=== PATIENT | female | born 1945 | race Caucasian/White ===

== ENCOUNTER 2022-01-23 08:57 | Outpatient (CLI) | payer MEDICARE, OTHER, SELFPAY ==
[2022-01-23 17:42] LABS: Vitamin D 25 Hydroxy* 25 ng/mL (30-80)
[2022-01-23 20:31] LABS: Free T4 Free Thyroxine* 0.85 ng/dL (0.70-1.85)
== END 2022-01-23 08:58 | disposition home or self-care (01) ==
PROVIDERS: PCP Family Medicine; Visit Provider Family Medicine
DX: E03.8 Other specified hypothyroidism (principal); R79.89 Other specified abnormal findings of blood chemistry; E55.9 Vitamin D deficiency, unspecified; M85.80 Other specified disorders of bone density and structure, unspecified site
CPT/HCPCS: 82306; 84439; 84443

== ENCOUNTER 2022-04-24 14:42 | Outpatient (CLI) | payer MEDICARE, OTHER, SELFPAY ==
[2022-04-24 17:09] LABS: Vitamin D 25 Hydroxy* 28 ng/mL (30-80)
[2022-04-24 20:08] LABS: Free T4 Free Thyroxine* 0.85 ng/dL (0.70-1.85)
== END 2022-04-24 14:43 | disposition home or self-care (01) ==
PROVIDERS: PCP Family Medicine; Visit Provider Family Medicine
DX: E55.9 Vitamin D deficiency, unspecified (principal); E03.9 Hypothyroidism, unspecified
CPT/HCPCS: 82306; 84439; 84443

== ENCOUNTER 2022-10-30 13:28 | Outpatient (CLI) | payer MEDICARE, OTHER, MEDICAID, SELFPAY | END 2022-10-30 13:29 | disposition home or self-care (01) | LOC: NFLDREF 10-31 09:40 | PROVIDERS: PCP Family Medicine; Referring Provider Family Medicine; Visit Provider Family Medicine | DX: E03.9 Hypothyroidism, unspecified (principal); E55.9 Vitamin D deficiency, unspecified; R53.83 Other fatigue; Z13.6 Encounter for screening for cardiovascular disorders | CPT/HCPCS: 80053; 80061; 82306; 84443 ==

== ENCOUNTER 2023-01-11 14:42 | Inpatient (IN) | payer BC, SELFPAY ==
[2023-01-11] VITALS (14 sets, daily range): BP systolic 104–136; BP diastolic 60–85; PULSE 73–101; RESP 16–20; TEMP 36.6–36.9; O2SAT 92–97; BMI 24.4
--- NOTE | 2023-01-11 15:54 | CRLHL7_ITS ---
For Patients: As a result of the Cures Act, medical imaging exams and procedure reports are released immediately into your electronic medical record. You may view this report before your referring provider. If you have questions, please contact your health care provider. INDICATION: Trauma. TECHNIQUE: CT cervical spine without contrast. COMPARISON: None. FINDINGS: Vertebrae: Alignment is normal. There are no fractures or suspicious bony lesions. Discs and facet joints: There are diffuse degenerative changes in the disc spaces and facet joints. Extraspinal findings: Paraspinous soft tissues are unremarkable. IMPRESSION: 1. No sign of acute injury. 2. Multilevel degenerative spondylosis. Please note that all CT scans at this facility use dose modulation, iterative reconstruction, and/or weight-based dosing when appropriate to reduce radiation dose to as low as reasonably achievable. Dictated by Kevin Valencia MD @ 01/11/2023 5:01:46 PM (Electronically Signed)
--- NOTE | 2023-01-11 15:54 | CRLHL7_ITS ---
For Patients: As a result of the Cures Act, medical imaging exams and procedure reports are released immediately into your electronic medical record. You may view this report before your referring provider. If you have questions, please contact your health care provider. Indication: Trauma. Technique: Left humerus, 2 views. Comparison: None. Findings/Impression: Bones: Acute mildly displaced horizontal humeral diaphyseal fracture. Joint spaces: Unremarkable. Soft tissues: Unremarkable. Dictated by Kevin Valencia MD @ 01/11/2023 5:14:01 PM (Electronically Signed)
--- NOTE | 2023-01-11 15:55 | CRLHL7_ITS ---
For Patients: As a result of the Century Cures Act, medical imaging exams and procedure reports are released immediately into your electronic medical record. You may view this report before your referring provider. If you have questions, please contact your health care provider. INDICATION: Fall, altered mental status. TECHNIQUE: CT head without contrast. COMPARISON: July 12, 2019. FINDINGS: CSF spaces: Mild diffuse parenchymal volume loss. Brain parenchyma and extra-axial spaces: Mild chronic white matter ischemic disease. The lorenzo-white differentiation is normal. No sign of mass, hemorrhage, or midline shift. No extra-axial fluid collection. Skull base and calvarium: The visualized paranasal sinuses and mastoid air cells demonstrate no acute or significant findings. The visualized orbits are grossly unremarkable. No skull fractures. IMPRESSION: No acute intracranial abnormality on this noncontrast study. Please note that all CT scans at this facility use dose modulation, iterative reconstruction, and/or weight-based dosing when appropriate to reduce radiation dose to as low as reasonably achievable. Dictated by Kevin Valencia MD @ 01/11/2023 4:59:59 PM (Electronically Signed)
--- NOTE | 2023-01-11 15:55 | CRLHL7_ITS ---
For Patients: As a result of the Century Cures Act, medical imaging exams and procedure reports are released immediately into your electronic medical record. You may view this report before your referring provider. If you have questions, please contact your health care provider. INDICATION: Chest pain. TECHNIQUE: Chest 1 views. COMPARISON: None. FINDINGS: Cardiovascular and mediastinum: Heart size and vasculature are normal in caliber and appearance. Lungs and pleural spaces: Lungs are clear. No sign of infiltrate or mass. No sign of pleural effusion. No pneumothorax. Bones and soft tissues: No significant findings. IMPRESSION: No acute or significant findings. Dictated by Kevin Valencia MD @ 01/11/2023 5:13:00 PM (Electronically Signed)
[2023-01-11 16:28] LABS: Basophils Absolute Auto 0.01 K/uL (0.00-0.30); Basophils Percent Auto 0.2 % (0.0-3.0); Hematocrit 40.6 % (33.0-51.0); Hemoglobin* 13.4 gm/dL (12.0-16.0); Immature Granulocytes Abs Auto 0.01 K/uL (0.00-0.30); Immature Granulocytes Pct Auto 0.2 %; Lymphocytes Percent Auto 8.7 % (20-44); Mean Corpuscular HGB Conc 33 gm/dL (32-36); Mean Corpuscular Hemoglobin 29 pg (26-34); Mean Corpuscular Volume 87 fL (80-100); Monocytes Percent Auto 9.3 % (0.0-11.0); Neutrophils Percent Auto 81.6 % (42.0-72.0); Platelet Count* 160 K/uL (140-440); RDW Coefficient of Variation % 13.1 % (11.5-15.5); Red Blood Count 4.66 m/uL (4.00-5.20); White Blood Count* 5.28 K/uL (4.50-11.00)
[2023-01-11 16:31] LABS: Slide Review Reflex No
[2023-01-11 16:46] LABS: Albumin* 4.2 g/dL (3.3-5.0)
[2023-01-11 16:47] LABS: Chloride* 102 mmol/L (96-114); Potassium* 3.8 mmol/L (3.6-5.1); Sodium* 137 mmol/L (135-149)
[2023-01-11 16:49] LABS: Bilirubin Total* 0.5 mg/dL (0.1-1.5); Creatinine* 0.9 mg/dL (0.5-1.5); Estimated Glomerular Filt Rate 65 ml/min
[2023-01-11 16:50] LABS: Alanine Aminotransferase* 29 U/L (4-35); Alkaline Phosphatase* 81 U/L (40-150); Anion Gap 11 mEq/L (7-15); Aspartate Amino Transferase* 49 U/L (12-35); Blood Urea Nitrogen* 20 mg/dL (7-30); Calcium* 9.2 mg/dL (8.4-10.6); Carbon Dioxide* 24 mmol/L (20-32); Glucose* 112 mg/dL (60-115); Magnesium* 2.2 mg/dL (1.5-2.6); Total Protein* 7.5 g/dL (6.0-8.3)
[2023-01-11 17:04] LABS: Troponin I* < 0.01 ng/mL (0.01-0.04)
[2023-01-11 17:10] LABS: Creatine Kinase* 115 U/L (41-117)
[2023-01-11 17:15] LABS: PCR FLU A Negative PCR FLU A (Negative); PCR FLU B Negative PCR FLU B (Negative); PCR RSV Negative PCR RSV (Negative)
[2023-01-11] MEDS: MORPHINE 4 MG/ML INJ IVP (17:15)
[2023-01-11 17:32] LABS: SARS PCR* POSITIVE SARS-CoV-2 (Negative)
--- NOTE | 2023-01-11 17:45 | ED_ITS ---
HPI - General Adult General Date Seen: 01/11/23 Chief complaint: Syncope/Fainted Stated complaint: Fell, lost consciousness, L arm injury Time Seen by Provider: 01/11/23 15:01 Source: patient Limitations: no limitations History of Present Illness HPI narrative: Patient is a 77-year-old female with a history of dementia presents to emergency department for a fall and left arm pain. She does home alone. According to her daughter she spoke to the patient this morning and then today around 01:00 o'clock the patient's D-dimer came over to visit and found her on the ground. The patient was brought immediately to the emergency department. Patient is able to answer questions but her daughter does states she seems more confused than normal. Patient states she was in her kitchen when next thing she knew she was on the ground. She is having difficulty getting back up in his having severe left arm pain. She also an episode of incontinence which her daughter states is abnormal for her. The patient denies chest pain, shortness of breath, headache, vision changes, abdominal pain, diarrhea, dysuria, for fevers, chills. Related Data Previous Rx's Medication Instructions Recorded cholecalciferol (vitamin D3) 50 50 mcg PO QDAY #90 tabs 11/02/22 mcg (2,000 unit) tablet donepezil 10 mg tablet 10 mg PO .Bedtime #90 tabs 11/02/22 fluoxetine 20 mg capsule 20 mg PO QDAY #90 caps 11/02/22 fluticasone propionate 50 2 spray intranasal QDAY #10 mL 11/02/22 mcg/actuation nasal spray,suspension (Flonase Allergy Relief) levothyroxine 75 mcg tablet 75 mcg PO DAILY #90 tabs 11/02/22 mirtazapine 15 mg tablet 15 mg PO .Bedtime #90 tabs 11/02/22 Allergies Allergy/AdvReac Type Severity Reaction Status Date / Time Penicillins Allergy Unknown Rash Verified 11/02/22 12:50 Sulfa (Sulfonamide Allergy Unknown Rash Verified 11/02/22 12:50 Antibiotics) Review of Systems Status of ROS: Reports: 10 or more systems reviewed and unremarkable except as noted in History and below [facility] Medical History (Updated 01/11/23 @ 20:07 by Vibha Hernandez MD) Chronic rhinitis ?J31.0 - Chronic rhinitis (ICD-10) Insomnia ?G47.00 - Insomnia, unspecified (ICD-10) Neuropathy ?G62.9 - Polyneuropathy, unspecified (ICD-10) Dyslipidemia (~2018) ?E78.5 - Hyperlipidemia, unspecified (ICD-10) Vitamin D deficiency ?E55.9 - Vitamin D deficiency, unspecified (ICD-10) Posttraumatic stress disorder ?F43.10 - Post-traumatic stress disorder, unspecified (ICD-10) Osteopenia (~2018) ?M85.80 - Other specified disorders of bone density and structure, unspecified site (ICD-10) Mild cognitive impairment ?G31.84 - Mild cognitive impairment, so stated (ICD-10) Hypothyroidism ?E03.9 - Hypothyroidism, unspecified (ICD-10) Fibromyalgia ?M79.7 - Fibromyalgia (ICD-10) Depression ?F32.A - Depression, unspecified (ICD-10) Anxiety ?F41.9 - Anxiety disorder, unspecified (ICD-10) Syncope and collapse ?R55 - Syncope and collapse (ICD-10) Surgical History Status post tubal ligation (1968) ?Z98.51 - Tubal ligation status (ICD-10) History of varicose vein stripping (1968) ?Z98.890 - Other specified postprocedural states (ICD-10) History of colonoscopy (11/01/18) ?Z98.890 - Other specified postprocedural states (ICD-10) Family History Father Alcohol dependence Maternal Grandmother Breast cancer Mother Fibromyalgia Social History (Updated 01/11/23 @ 20:07 by Vibha Hernandez MD) Narrative: Lives independently in [address] [facility] [address]. She currently receives [employer], no other services. 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 Full Code Exercises: walking, swimming -swims 60 minutes daily, walks 30 minutes daily non smoker rarely consumes alcohol What is your current living situation?: I presently have a place to live Problems where you live: no known problems Problems where you live details: N/A In the past 12 months, utilities in danger of being shut off: no In the past 12 mos, have been you worried that your food would run out before you had money to buy more?: never true In the past 12 mos, the food you bought just didn't last and you didn't have money to buy more?: never true Highest level of school completed/degree received: Bachelor's degree Smoking Status: Never smoker Do you use any of these nicotine containing products: None How often do you have a drink containing alcohol: never How often do you have six or more drinks on one occasion: Never AUDIT-C Alcohol total score: 0 Non-prescribed substance use: denies use Caffeine: Yes How often does anyone, including family, friends and others, physically hurt you : never How often does anyone, including family, friends and others, insult or talk down to you: never How often does anyone, including family, friends and others, threaten you with harm: never How often does anyone, including family, friends and others, scream or curse at you: never Little interest or pleasure in doing things: not at all Feeling down, depressed, or hopeless: not at all service: No Exam Narrative: Exam Narrative: Const: Well-nourished, Well-developed, in mild distress Eyes: PERRL, no conjunctival injection, and symmetrical lids ENMT: Atraumatic external nose and ears. Moist mucous membranes. Neck: Symmetric, trachea midline, No thyromegaly. CVS: RRR, No murmurs or gallops. Peripheral pulses 2+ and equal in all extremities RESP: Unlabored respiratory effort. Clear to auscultation bilaterally. GI: Nontender/Nondistended, No rebound or guarding. MSK: Deformity noted to left upper arm that is painful to the touch. No other injuries noted Skin: Warm, Dry. No rashes or lesions. Neuro: Normal Muscle tone, No focal neurological deficits. Psych: Awake, Alert, & Oriented x3. Appropriate mood and affect. Const: Vital Signs, click to edit/add: Vital Signs - 24 hr 01/11/23 14:55 01/11/23 15:38 01/11/23 16:22 Temperature 97.8 F Pulse Rate 92 Pulse Rate [Right Pulse Oximeter] 73 Respiratory Rate 18 Blood Pressure Blood Pressure [Ri ght Arm] Blood Pressure [Ri ght Upper Arm] 107/66 Blood Pressure [or thostatic lying Ri ght Arm] 122/78 Blood Pressure [or thostatic sitting Right Arm] 113/84 Blood Pressure [or thostatic standing Right Arm] 104/60 Pulse Oximetry 94 92 Oxygen Delivery Me thod Room Air 01/11/23 16:45 01/11/23 16:53 01/11/23 17:00 Temperature Pulse Rate 86 94 91 Pulse Rate [Right Pulse Oximeter] Respiratory Rate Blood Pressure 124/68 Blood Pressure [Ri ght Arm] Blood Pressure [Ri ght Upper Arm] Blood Pressure [or thostatic lying Ri ght Arm] Blood Pressure [or thostatic sitting Right Arm] Blood Pressure [or thostatic standing Right Arm] Pulse Oximetry 95 96 94 Oxygen Delivery Me thod 01/11/23 17:02 01/11/23 17:24 01/11/23 17:30 Temperature Pulse Rate 90 91 93 Pulse Rate [Right Pulse Oximeter] Respiratory Rate Blood Pressure 117/72 Blood Pressure [Ri ght Arm] Blood Pressure [Ri ght Upper Arm] Blood Pressure [or thostatic lying Ri ght Arm] Blood Pressure [or thostatic sitting Right Arm] Blood Pressure [or thostatic standing Right Arm] Pulse Oximetry 95 96 96 Oxygen Delivery Me thod 01/11/23 17:32 01/11/23 17:50 01/11/23 19:53 Temperature 98.5 F Pulse Rate 101 H Pulse Rate [Right Pulse Oximeter] 82 Respiratory Rate 20 16 Blood Pressure 111/70 Blood Pressure [Ri ght Arm] 136/85 Blood Pressure [Ri ght Upper Arm] Blood Pressure [or thostatic lying Ri ght Arm] Blood Pressure [or thostatic sitting Right Arm] Blood Pressure [or thostatic standing Right Arm] Pulse Oximetry 94 97 Oxygen Delivery Me thod Room Air Course Vital Signs Vital signs: Initial Vital Signs Temperature 97.8 F 01/11/23 14:55 Temperature Source Temporal Artery Scan 01/11/23 14:55 Pulse Rate 73 01/11/23 14:55 Respiratory Rate 18 01/11/23 14:55 Blood Pressure 107/66 01/11/23 14:55 Blood Pressure Mean 79 01/11/23 14:55 Blood Pressure Position Sitting 01/11/23 14:55 Pulse Oximetry 94 01/11/23 14:55 Oxygen Delivery Method Room Air 01/11/23 14:55 Vital Signs Temperature 97.8 F 01/11/23 14:55 Pulse Rate 73 01/11/23 14:55 Respiratory Rate 18 01/11/23 14:55 Blood Pressure 107/66 01/11/23 14:55 Pulse Oximetry 94 01/11/23 14:55 Oxygen Delivery Method Room Air 01/11/23 14:55 Temperature 98.5 F 01/11/23 20:35 Pulse Rate 82 01/11/23 19:53 Respiratory Rate 16 01/11/23 20:50 Blood Pressure 136/85 01/11/23 19:53 Pulse Oximetry 97 01/11/23 20:50 Oxygen Delivery Method Room Air 01/11/23 20:50 Medical Decision Making MDM Narrative Medical decision making narrative: Patient is a 77-year-old female presented emergency department for a fall and mild altered mental status compared to baseline. She is more confused than normal according to her daughter had episode of continence. Sounds like she had episode of syncope at home but unsure what the cause is. She does have an apparent left humerus fracture. We will order chest x-ray to look for signs of pneumonia. Urinalysis, CBC, EKG, troponin, CMP, his creatinine kinase were ordered. X-ray of left humerus was ordered also along with CTs of the head and cervical spine Patient's CBC, CMP, troponin, magnesium 0 showed no concerning abnormalities. X-rays of the chest shows no signs of pneumonia. Head and cervical spine CT showed no concerning findings. X-ray of left humerus shows a mildly displaced fracture of the midshaft humerus. This was splinted. Patient did test positive for COVID and is likely the cause of her symptoms. I spoke to the admitting hospitalist accepted her for admission. Lab Data Labs: Lab Results 01/11/23 01/11/23 Range/Units 16:15 16:55 WBC 5.28 (4.50-11.00) K/uL RBC 4.66 (4.00-5.20) m/uL Hgb 13.4 (12.0-16.0) gm/dL Hct 40.6 (33.0-51.0) % MCV 87 (80-100) fL MCH 29 (26-34) pg MCHC 33 (32-36) gm/dL RDW Coeff of Alvin 13.1 (11.5-15.5) % Plt Count 160 (140-440) K/uL Neut % (Auto) 81.6 H (42.0-72.0) % Lymph % (Auto) 8.7 L (20-44) % [place] % (Auto) 9.3 (0.0-11.0) % Eos % (Auto) 0.0 (0.0-7.0) % Baso % (Auto) 0.2 (0.0-3.0) % Neut # (Auto) 4.30 (1.7-7.0) K/uL Lymph # (Auto) 0.50 L (0.90-2.90) K/uL [place] # (Auto) 0.50 (0.00-0.90) K/UL Eos # (Auto) 0.00 (0.00-0.50) K/uL Baso # (Auto) 0.01 (0.00-0.30) K/uL Abs Immat Gran (auto) 0.01 (0.00-0.30) K/uL Imm/Tot Granulo (auto) 0.2 % Sodium 137 (135-149) mmol/L Potassium 3.8 (3.6-5.1) mmol/L Chloride 102 (96-114) mmol/L Carbon Dioxide 24 (20-32) mmol/L Anion Gap 11 (7-15) mEq/L BUN 20 (7-30) mg/dL Creatinine 0.9 (0.5-1.5) mg/dL Estimated GFR 65 ml/min Glucose 112 (60-115) mg/dL Calcium 9.2 (8.4-10.6) mg/dL Magnesium 2.2 (1.5-2.6) mg/dL Total Bilirubin 0.5 (0.1-1.5) mg/dL AST 49 H (12-35) U/L ALT 29 (4-35) U/L Alkaline Phosphatase 81 (40-150) U/L Total Creatine Kinase 115 (41-117) U/L Troponin I < 0.01 L (0.01-0.04) ng/mL Total Protein 7.5 (6.0-8.3) g/dL Albumin 4.2 (3.3-5.0) g/dL SARS-CoV-2 (PCR) POSITIVE SARS-CoV-2 A (Negative) Influenza Type A (PCR) Negative PCR FLU A (Negative) Influenza Type B (PCR) Negative PCR FLU B (Negative) RSV (PCR) Negative PCR RSV (Negative) Lab Acknowledgement Test Added Imaging Data Chest x-ray: Radiologist's impression: INDICATION: Chest pain. TECHNIQUE: Chest 1 views. COMPARISON: None. FINDINGS: Cardiovascular and mediastinum: Heart size and vasculature are normal in caliber and appearance. Lungs and pleural spaces: Lungs are clear. No sign of infiltrate or mass. No sign of pleural effusion. No pneumothorax. Bones and soft tissues: No significant findings. IMPRESSION: No acute or significant findings. Dictated by Kevin Valencia MD @ 01/11/2023 5:13:[address] cervical spine: Radiologist's impression: INDICATION: Trauma. TECHNIQUE: CT cervical spine without contrast. COMPARISON: None. FINDINGS: Vertebrae: Alignment is normal. There are no fractures or suspicious bony lesions. Discs and facet joints: There are diffuse degenerative changes in the disc spaces and facet joints. Extraspinal findings: Paraspinous soft tissues are unremarkable. IMPRESSION: 1. No sign of acute injury. 2. Multilevel degenerative spondylosis. Please note that all CT scans at this facility use dose modulation, iterative reconstruction, and/or weight-based dosing when appropriate to reduce radiation dose to as low as reasonably achievable. Dictated by Kevin Valencia MD @ 01/11/2023 5:01:[address] scan - head: Radiologist's impression: INDICATION: Fall, altered mental status. TECHNIQUE: CT head without contrast. COMPARISON: July 12, 2019. FINDINGS: CSF spaces: Mild diffuse parenchymal volume loss. Brain parenchyma and extra-axial spaces: Mild chronic white matter ischemic disease. The lorenzo-white differentiation is normal. No sign of mass, hemorrhage, or midline shift. No extra-axial fluid collection. Skull base and calvarium: The visualized paranasal sinuses and mastoid air cells demonstrate no acute or significant findings. The visualized orbits are grossly unremarkable. No skull fractures. IMPRESSION: No acute intracranial abnormality on this noncontrast study. Please note that all CT scans at this facility use dose modulation, iterative reconstruction, and/or weight-based dosing when appropriate to reduce radiation dose to as low as reasonably achievable. Dictated by Kevin Valencia MD @ 01/11/2023 4:59:59 PM Left humerus x-ray: Radiologist's impression: Indication: Trauma. Technique: Left humerus, 2 views. Comparison: None. Findings/Impression: Bones: Acute mildly displaced horizontal humeral diaphyseal fracture. Joint spaces: Unremarkable. Soft tissues: Unremarkable. Dictated by Kevin Valencia MD @ 01/11/2023 5:14:01 PM ECG Data Attestation: I personally reviewed and interpreted this ECG as follows: Prior ECG tracings: not available for review Interpretation: Normal sinus rhythm rate 96 beats per minute, normal intervals, normal axis, no ST or T-wave abnormalities Discharge Plan Discharge Clinical Impression: Acute alteration in mental status, COVID, Weakness Closed left humeral fracture Qualifiers: Encounter type: initial encounter Humerus Location: shaft Fracture morphology: other fracture Qualified Code(s): S42.392A - Other fracture of shaft of left humerus, initial encounter for closed fracture Patient Disposition: Admitted As Observation Discharge Location: [facility] Condition: Stable Procedures Orthopedic Splinting/Casting Left arm: Side: left Upper Extremity Injury Location: upper arm Upper extremity immobilizer: sling/shoulder immobilizer (Coaptation splint) Applied by clinician: / Conclusion: patient tolerated procedure
--- NOTE | 2023-01-11 18:22 | ED.NURSE ---
Pt report given off to gianluca CHAVEZ.
--- NOTE | 2023-01-11 19:54 | P.IMHP_ITS ---
Hospitalist- H&P: HPI History of Present Illness Date Seen: 01/11/23 Chief complaint: Fell, lost consciousness, L arm injury Narrative: Elizabeth Mcfarlane is a 77 year old female who presented to the emergency room today after being found down at home. She talked with her daughter early in the morning, and then was found on the floor by neighbors early afternoon; exact mechanism of fall unclear. Patient does not believe she had loss of consciousness, but neighbors noted she was more confused than baseline. Cherry does have baseline mild cognitive impairment and daughter Emely is present for H&P. ER course and findings: - negative head CT and C-spine, no acute findings on chest x-ray - left midshaft humerus fracture - + COVID without hypoxia - reassuring labs Review of Systems Status of ROS: Reports: 10 or more systems reviewed and unremarkable except as noted in History and below Narrative: -limited by cognitive impairment, but patient specifically denies any chest pain, cough, dyspnea, or other concerns for hospitalist team [facility] Medical History (Updated 01/11/23 @ 20:07 by Vibha Hernandez MD) Chronic rhinitis ?J31.0 - Chronic rhinitis (ICD-10) Insomnia ?G47.00 - Insomnia, unspecified (ICD-10) Neuropathy ?G62.9 - Polyneuropathy, unspecified (ICD-10) Dyslipidemia (~2018) ?E78.5 - Hyperlipidemia, unspecified (ICD-10) Vitamin D deficiency ?E55.9 - Vitamin D deficiency, unspecified (ICD-10) Posttraumatic stress disorder ?F43.10 - Post-traumatic stress disorder, unspecified (ICD-10) Osteopenia (~2018) ?M85.80 - Other specified disorders of bone density and structure, unspecified site (ICD-10) Mild cognitive impairment ?G31.84 - Mild cognitive impairment, so stated (ICD-10) Hypothyroidism ?E03.9 - Hypothyroidism, unspecified (ICD-10) Fibromyalgia ?M79.7 - Fibromyalgia (ICD-10) Depression ?F32.A - Depression, unspecified (ICD-10) Anxiety ?F41.9 - Anxiety disorder, unspecified (ICD-10) Syncope and collapse ?R55 - Syncope and collapse (ICD-10) Surgical History Status post tubal ligation (1968) ?Z98.51 - Tubal ligation status (ICD-10) History of varicose vein stripping (1968) ?Z98.890 - Other specified postprocedural states (ICD-10) History of colonoscopy (11/01/18) ?Z98.890 - Other specified postprocedural states (ICD-10) Family History Father Alcohol dependence Maternal Grandmother Breast cancer Mother Fibromyalgia Social History (Updated 01/11/23 @ 20:07 by Vibha Hernandez MD) Narrative: Lives independently in [address] [facility] [address]. She currently receives Meals on wheels, no other services. 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 Full Code Exercises: walking, swimming -swims 60 minutes daily, walks 30 minutes daily non smoker rarely consumes alcohol What is your current living situation?: I presently have a place to live Problems where you live: no known problems Problems where you live details: N/A In the past 12 months, utilities in danger of being shut off: no In the past 12 mos, have been you worried that your food would run out before you had money to buy more?: never true In the past 12 mos, the food you bought just didn't last and you didn't have money to buy more?: never true Highest level of school completed/degree received: Bachelor's degree Smoking Status: Never smoker Do you use any of these nicotine containing products: None How often do you have a drink containing alcohol: never How often do you have six or more drinks on one occasion: Never AUDIT-C Alcohol total score: 0 Non-prescribed substance use: denies use Caffeine: Yes How often does anyone, including family, friends and others, physically hurt you : never How often does anyone, including family, friends and others, insult or talk down to you: never How often does anyone, including family, friends and others, threaten you with harm: never How often does anyone, including family, friends and others, scream or curse at you: never Little interest or pleasure in doing things: not at all Feeling down, depressed, or hopeless: not at all service: No Meds Home Medications and Allergies Home Medication Comments: Patient takes donepezil and mirtazapine at night, in addition to melatonin. She also takes fluoxetine and levothyroxine during the day. Allergies Allergy/AdvReac Type Severity Reaction Status Date / Time Penicillins Allergy Unknown Rash Verified 11/02/22 12:50 Sulfa (Sulfonamide Allergy Unknown Rash Verified 11/02/22 12:50 Antibiotics) Exam Narrative: Exam Narrative: GEN: Alert and pleasant, nontoxic. Cognitive impairment is evident HEENT: EOMIs bilaterally, no scleral icterus CV: RRR, No concerning murmurs, rubs, or gallops R: LCTA bilaterally without concerning wheezing, air movement is adequate Ab: soft, nontender Ext: wwp, no concerning edema. 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 Skin: No concerning skin lesions or rashes on exposed skin Neuro: Nonfocal Psych: No agitation Const: Vital Signs, click to edit/add: Vital Signs - 24 hr 01/11/23 14:55 01/11/23 15:38 01/11/23 16:22 Temperature 97.8 F Pulse Rate 92 Pulse Rate [Right Pulse Oximeter] 73 Respiratory Rate 18 Blood Pressure Blood Pressure [Ri ght Upper Arm] 107/66 Blood Pressure [or thostatic lying Ri ght Arm] 122/78 Blood Pressure [or thostatic sitting Right Arm] 113/84 Blood Pressure [or thostatic standing Right Arm] 104/60 Pulse Oximetry 94 92 Oxygen Delivery Me od Room Air 01/11/23 16:45 01/11/23 16:53 01/11/23 17:00 Temperature Pulse Rate 86 94 91 Pulse Rate [Right Pulse Oximeter] Respiratory Rate Blood Pressure 124/68 Blood Pressure [Ri ght Upper Arm] Blood Pressure [or thostatic lying Ri ght Arm] Blood Pressure [or thostatic sitting Right Arm] Blood Pressure [or thostatic standing Right Arm] Pulse Oximetry 95 96 94 Oxygen Delivery Me thod 01/11/23 17:02 01/11/23 17:24 01/11/23 17:30 Temperature Pulse Rate 90 91 93 Pulse Rate [Right Pulse Oximeter] Respiratory Rate Blood Pressure 117/72 Blood Pressure [Ri ght Upper Arm] Blood Pressure [or thostatic lying Ri ght Arm] Blood Pressure [or thostatic sitting Right Arm] Blood Pressure [or thostatic standing Right Arm] Pulse Oximetry 95 96 96 Oxygen Delivery Sc thod 01/11/23 17:32 01/11/23 17:50 Temperature Pulse Rate 101 H Pulse Rate [Right Pulse Oximeter] Respiratory Rate 20 Blood Pressure 111/70 Blood Pressure [Ri ght Upper Arm] Blood Pressure [or thostatic lying Ri ght Arm] Blood Pressure [or thostatic sitting Right Arm] Blood Pressure [or thostatic standing Right Arm] Pulse Oximetry 94 Oxygen Delivery [facility] Hospitalist - H&P: Result Labs Labs: Short CBC 01/11/23 Range/Units 16:15 WBC 5.28 (4.50-11.00) K/uL Hgb 13.4 (12.0-16.0) gm/dL Hct 40.6 (33.0-51.0) % Plt Count 160 (140-440) K/uL BMP 01/11/23 16:15 Sodium 137 Potassium 3.8 Chloride 102 Carbon Dioxide 24 BUN 20 Creatinine 0.9 Glucose 112 Calcium 9.2 Cardiac Enzymes 01/11/23 Range/Units 16:15 Total Creatine Kinase 115 (41-117) U/L Troponin I < 0.01 L (0.01-0.04) ng/mL Liver Function 01/11/23 Range/Units 16:15 Total Bilirubin 0.5 (0.1-1.5) mg/dL AST 49 H (12-35) U/L ALT 29 (4-35) U/L Alkaline Phosphatase 81 (40-150) U/L Albumin 4.2 (3.3-5.0) g/dL Assessment and Plan Assessment and plan (1) Closed left humeral fracture: Problem comment: - likely non operative, therapies and orthopedic surgery consulted Status: Acute (2) COVID: Problem comment: -clinically stable at this time, no COVID specific therapies required Status: Acute (3) Weakness: Problem comment: - likely secondary to COVID, may require increased therapies at home Status: Acute (4) Acute alteration in mental status: Problem comment: - worsening of cognitive impairment vs COVID encephalopathy, work on redirection as needed Status: Acute (5) Dementia: Problem comment: - MMSE 10/2022 -correlates to moderate dementia - follows with PCP for this Status: Acute Plan - per above - Lovenox for prophylaxis, SCDs deferred given cognitive impairment, risk for confusion and fall - dispo: Home with increased services versus TCU, pending clinical course and therapy evaluations
[2023-01-11] MEDS: ACETAMINOPHEN 325 MG TABLET 975 MG PO (20:35)
[2023-01-11] MEDS: DONEPEZIL 10 MG TABLET PO (20:36)
[2023-01-11] MEDS: MELATONIN 3 MG TABLET 6 MG PO (20:36)
[2023-01-11] MEDS: MIRTAZAPINE 15 MG TABLET PO (20:36)
[2023-01-11] MEDS: SODIUM CHLORIDE 0.9 % (FLUSH) 10 ML SYRINGE 5 ML IVF (20:36)
[2023-01-11 20:55] LABS: Appearance Urine Clear (Clear); Bilirubin Urine Negative (Negative); Blood Urine Trace-intact (Negative); Glucose Urine Negative (Negative); Ketones Urine 2+ (Negative); Leukocyte Esterase Urine Negative (Negative); Nitrite Urine Negative (Negative); Protein Urine 2+ (Negative); Specific Gravity Urine >= 1.030 (1.000-1.030); Urobilinogen Urine 0.2 (0.2-1.0); pH Urine 5.5 (5.0-8.5)
[2023-01-11 20:59] LABS: Color Urine Yellow (Yellow)
[2023-01-11 21:08] LABS: RBC Urine 0-2 (0-2); Squamous Epithelial Cell Urine Few (None-Few); WBC Urine 0-2 (0-5)
[2023-01-11 21:09] LABS: Hyaline Casts Urine Few (None-Few)
[2023-01-12] VITALS (8 sets, daily range): BP systolic 121–153; BP diastolic 75–98; PULSE 83–95; RESP 16–18; TEMP 36.3–36.8; O2SAT 94–99
[2023-01-12 07:16] LABS: Albumin* 3.7 g/dL (3.3-5.0); Chloride* 103 mmol/L (96-114); Potassium* 3.5 mmol/L (3.6-5.1); Sodium* 135 mmol/L (135-149)
[2023-01-12 07:19] LABS: Alanine Aminotransferase* 27 U/L (4-35); Alkaline Phosphatase* 70 U/L (40-150); Anion Gap 6 mEq/L (7-15); Aspartate Amino Transferase* 50 U/L (12-35); Bilirubin Total* 0.4 mg/dL (0.1-1.5); Blood Urea Nitrogen* 17 mg/dL (7-30); Carbon Dioxide* 26 mmol/L (20-32); Creatinine* 0.5 mg/dL (0.5-1.5); Est. Creatinine Clearance* 39.39; Estimated Glomerular Filt Rate 95 ml/min; Glucose* 92 mg/dL (60-115); Total Protein* 6.7 g/dL (6.0-8.3)
--- NOTE | 2023-01-12 07:37 | PC.NURSE ---
Pt alert and oriented self only. Afebrile.?Pt denies, chest pain, SOB, and N/V. Pt kept left arm sling and brace on throughout night. Pt is tolerating reg diet and voiding. Pt is up SBA. Pt slept throughout most of night.?Night uneventful. ?
[2023-01-12] MEDS: LEVOTHYROXINE 75 MCG TABLET PO (08:14)
[2023-01-12] MEDS: FLUOXETINE HCL 20 MG CAPSULE PO (08:26)
--- NOTE | 2023-01-12 12:23 | P.ORCN_ITS ---
History of Present Illness HPI Date Seen: 01/12/23 Consult date: 01/12/23 Requesting physician: Ashish Chew Chief complaint: Fell, lost consciousness, L arm injury Narrative: Cherry is a 77-year-old [id number] female past medical history significant for dementia. She was admitted yesterday after she sustained a closed left humeral shaft fracture. Mechanism of injury is unknown, but patient apparently sustained a ground level fall in her home. She was found down and subsequent transferred to the emergency department where x-rays revealed a minimally displaced humeral shaft fracture. A sugar-tong splint was applied in the ER and and patient was admitted to the hospitalist service. This morning, she states that her pain is adequately controlled and is better since the splint was applied. She denies any other injuries. [facility] Medical History (Updated 01/11/23 @ 20:07 by Vibha Hernandez MD) Chronic rhinitis ?J31.0 - Chronic rhinitis (ICD-10) Insomnia ?G47.00 - Insomnia, unspecified (ICD-10) Neuropathy ?G62.9 - Polyneuropathy, unspecified (ICD-10) Dyslipidemia (~2018) ?E78.5 - Hyperlipidemia, unspecified (ICD-10) Vitamin D deficiency ?E55.9 - Vitamin D deficiency, unspecified (ICD-10) Posttraumatic stress disorder ?F43.10 - Post-traumatic stress disorder, unspecified (ICD-10) Osteopenia (~2018) ?M85.80 - Other specified disorders of bone density and structure, unspecified site (ICD-10) Mild cognitive impairment ?G31.84 - Mild cognitive impairment, so stated (ICD-10) Hypothyroidism ?E03.9 - Hypothyroidism, unspecified (ICD-10) Fibromyalgia ?M79.7 - Fibromyalgia (ICD-10) Depression ?F32.A - Depression, unspecified (ICD-10) Anxiety ?F41.9 - Anxiety disorder, unspecified (ICD-10) Syncope and collapse ?R55 - Syncope and collapse (ICD-10) Surgical History Status post tubal ligation (1968) ?Z98.51 - Tubal ligation status (ICD-10) History of varicose vein stripping (1968) ?Z98.890 - Other specified postprocedural states (ICD-10) History of colonoscopy (11/01/18) ?Z98.890 - Other specified postprocedural states (ICD-10) Family History Father Alcohol dependence Maternal Grandmother Breast cancer Mother Fibromyalgia Social History (Updated 01/11/23 @ 20:07 by Vibha Hernandez MD) Narrative: Lives independently in [address]. She currently receives Meals on wheels, no other services. 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 Full Code Exercises: walking, swimming -swims 60 minutes daily, walks 30 minutes daily non smoker rarely consumes alcohol What is your current living situation?: I presently have a place to live Problems where you live: no known problems Problems where you live details: N/A In the past 12 months, utilities in danger of being shut off: no In the past 12 mos, have been you worried that your food would run out before you had money to buy more?: never true In the past 12 mos, the food you bought just didn't last and you didn't have money to buy more?: never true Highest level of school completed/degree received: Bachelor's degree Smoking Status: Never smoker Do you use any of these nicotine containing products: None How often do you have a drink containing alcohol: never How often do you have six or more drinks on one occasion: Never AUDIT-C Alcohol total score: 0 Non-prescribed substance use: denies use Caffeine: Yes How often does anyone, including family, friends and others, physically hurt you : never How often does anyone, including family, friends and others, insult or talk down to you: never How often does anyone, including family, friends and others, threaten you with harm: never How often does anyone, including family, friends and others, scream or curse at you: never Little interest or pleasure in doing things: not at all Feeling down, depressed, or hopeless: not at all service: No Meds Home Medications and Allergies Home Medications Medication Instructions Recorded Confirmed Type donepezil 10 mg tablet 10 mg PO HS 01/12/23 01/12/23 History mirtazapine 15 mg tablet 15 mg PO HS 01/12/23 01/12/23 History Allergies Allergy/AdvReac Type Severity Reaction Status Date / Time Penicillins Allergy Unknown Rash Verified 11/02/22 12:50 Sulfa (Sulfonamide Allergy Unknown Rash Verified 11/02/22 12:50 Antibiotics) Ortho Exam Narrative Exam Narrative: Left upper extremity was examined in the splint. Radial, ulnar, and median sensation intact to light touch. Thumb extension, thumb opposition, thumb IP flexion, intrinsics, wrist flexion/extension are all intact. Fingers are warm well perfused with intact radial pulse. Const Vital Signs, click to edit/add: Vital Signs - 24 hr 01/11/23 14:55 01/11/23 15:38 01/11/23 16:22 Temperature 97.8 F Pulse Rate 92 Pulse Rate [Right Pulse Oximeter] 73 Respiratory Rate 18 Blood Pressure Blood Pressure [Right Arm] Blood Pressure [Right Upper Arm] 107/66 Blood Pressure [orthostatic lying Right Arm] 122/78 Blood Pressure [orthostatic sitting Right Arm] 113/84 Blood Pressure [orthostatic standing Right Arm] 104/60 Pulse Oximetry 94 92 Oxygen Delivery Method Room Air 01/11/23 16:45 01/11/23 16:53 01/11/23 17:00 Temperature Pulse Rate 86 94 91 Pulse Rate [Right Pulse Oximeter] Respiratory Rate Blood Pressure 124/68 Blood Pressure [Right Arm] Blood Pressure [Right Upper Arm] Blood Pressure [orthostatic lying Right Arm] Blood Pressure [orthostatic sitting Right Arm] Blood Pressure [orthostatic standing Right Arm] Pulse Oximetry 95 96 94 Oxygen Delivery Method 01/11/23 17:02 01/11/23 17:24 01/11/23 17:30 Temperature Pulse Rate 90 91 93 Pulse Rate [Right Pulse Oximeter] Respiratory Rate Blood Pressure 117/72 Blood Pressure [Right Arm] Blood Pressure [Right Upper Arm] Blood Pressure [orthostatic lying Right Arm] Blood Pressure [orthostatic sitting Right Arm] Blood Pressure [orthostatic standing Right Arm] Pulse Oximetry 95 96 96 Oxygen Delivery Method 01/11/23 17:32 01/11/23 17:50 01/11/23 19:53 Temperature 98.5 F Pulse Rate 101 H Pulse Rate [Right Pulse Oximeter] 82 Respiratory Rate 20 16 Blood Pressure 111/70 Blood Pressure [Right Arm] 136/85 Blood Pressure [Right Upper Arm] Blood Pressure [orthostatic lying Right Arm] Blood Pressure [orthostatic sitting Right Arm] Blood Pressure [orthostatic standing Right Arm] Pulse Oximetry 94 97 Oxygen Delivery Method Room Air 01/11/23 20:35 01/11/23 20:50 01/12/23 01:20 Temperature 98.5 F Pulse Rate Pulse Rate [Right Pulse Oximeter] 86 Respiratory Rate 16 16 Blood Pressure Blood Pressure [Right Arm] Blood Pressure [Right Upper Arm] Blood Pressure [orthostatic lying Right Arm] Blood Pressure [orthostatic sitting Right Arm] Blood Pressure [orthostatic standing Right Arm] Pulse Oximetry 97 Oxygen Delivery Method Room Air 01/12/23 01:20 01/12/23 01:20 01/12/23 03:25 Temperature 98.1 F 98.2 F Pulse Rate Pulse Rate [Right Pulse Oximeter] 86 91 Respiratory Rate 16 16 16 Blood Pressure Blood Pressure [Right Arm] 131/75 133/79 Blood Pressure [Right Upper Arm] Blood Pressure [orthostatic lying Right Arm] Blood Pressure [orthostatic sitting Right Arm] Blood Pressure [orthostatic standing Right Arm] Pulse Oximetry 95 95 97 Oxygen Delivery Method Room Air Room Air Room Air 01/12/23 07:00 01/12/23 07:00 01/12/23 07:00 Temperature 97.7 F Pulse Rate Pulse Rate [Right Pulse Oximeter] 95 95 Respiratory Rate 16 16 16 Blood Pressure Blood Pressure [Right Arm] 135/87 Blood Pressure [Right Upper Arm] Blood Pressure [orthostatic lying Right Arm] Blood Pressure [orthostatic sitting Right Arm] Blood Pressure [orthostatic standing Right Arm] Pulse Oximetry 94 94 Oxygen Delivery Method Room Air Room Air Results Labs Labs: Laboratory Results - last 48 hr 01/11/23 01/11/23 01/11/23 16:15 16:55 20:30 WBC 5.28 RBC 4.66 Hgb 13.4 Hct 40.6 MCV 87 MCH 29 MCHC 33 RDW Coeff of Alvin 13.1 Plt Count 160 Neut % (Auto) 81.6 H Lymph % (Auto) 8.7 L Lipscomb % (Auto) 9.3 Eos % (Auto) 0.0 Baso % (Auto) 0.2 Neut # (Auto) 4.30 Lymph # (Auto) 0.50 L Lipscomb # (Auto) 0.50 Eos # (Auto) 0.00 Baso # (Auto) 0.01 Abs Immat Gran (auto) 0.01 Imm/Tot Granulo (auto) 0.2 Sodium 137 Potassium 3.8 Chloride 102 Carbon Dioxide 24 Anion Gap 11 BUN 20 Creatinine 0.9 Estimated Creat Clear Estimated GFR 65 Glucose 112 Calcium 9.2 Magnesium 2.2 Total Bilirubin 0.5 AST 49 H ALT 29 Alkaline Phosphatase 81 Total Creatine Kinase 115 Troponin I < 0.01 L Total Protein 7.5 Albumin 4.2 Urine Color Yellow Urine Appearance Clear Urine pH 5.5 Ur Specific [place] >= 1.030 Urine Protein 2+ A Urine Glucose (UA) Negative Urine Ketones 2+ A Urine Blood Trace-intact A Urine Nitrite Negative Urine Bilirubin Negative Urine Urobilinogen 0.2 Ur Leukocyte Esterase Negative Urine RBC 0-2 Urine WBC 0-2 Ur Squamous Epith Cells Few Urine Bacteria None Hyaline Casts Few SARS-CoV-2 (PCR) POSITIVE SARS-CoV-2 A Influenza Type A (PCR) Negative PCR FLU A Influenza Type B (PCR) Negative PCR FLU B RSV (PCR) Negative PCR RSV Lab Acknowledgement Test Added 01/12/23 06:35 WBC RBC Hgb Hct MCV MCH MCHC RDW Coeff of Alvin Plt Count Neut % (Auto) Lymph % (Auto) [place]comb % (Auto) Eos % (Auto) Baso % (Auto) Neut # (Auto) Lymph # (Auto) [place]comb # (Auto) Eos # (Auto) Baso # (Auto) Abs Immat Gran (auto) Imm/Tot Granulo (auto) Sodium 135 Potassium 3.5 L Chloride 103 Carbon Dioxide 26 Anion Gap 6 L BUN 17 Creatinine 0.5 Estimated Creat Clear 39.39 Estimated GFR 95 Glucose 92 Calcium 9.0 Magnesium Total Bilirubin 0.4 AST 50 H ALT 27 Alkaline Phosphatase 70 Total Creatine Kinase Troponin I Total Protein 6.7 Albumin 3.7 Urine Color Urine Appearance Urine pH Ur Specific [place] Urine Protein Urine Glucose (UA) Urine Ketones Urine Blood Urine Nitrite Urine Bilirubin Urine Urobilinogen Ur Leukocyte Esterase Urine RBC Urine WBC Ur Squamous Epith Cells Urine Bacteria Hyaline Casts SARS-CoV-2 (PCR) Influenza Type A (PCR) Influenza Type B (PCR) RSV (PCR) Lab Acknowledgement Diagnostic results Additional Comments: X-rays of the left humerus performed 01/11/2023 were reviewed. These demonstrate a minimally displaced transverse left humeral shaft fracture with approximately 10? valgus angulation. Assessment and Plan Assessment and plan (1) Closed left humeral fracture: Problem comment: - likely non operative, therapies and orthopedic surgery consulted Status: Acute Total time spent: Total time spent is greater than 50% in coordination of care (as documented) at patient's floor/unit and/or counseling patient: (2) COVID: Problem comment: -clinically stable at this time, no COVID specific therapies required Status: Acute Total time spent: Total time spent is greater than 50% in coordination of care (as documented) at patient's floor/unit and/or counseling patient: (3) Weakness: Problem comment: - likely secondary to COVID, may require increased therapies at home Status: Acute Total time spent: Total time spent is greater than 50% in coordination of care (as documented) at patient's floor/unit and/or counseling patient: (4) Acute alteration in mental status: Problem comment: - worsening of cognitive impairment vs COVID encephalopathy, work on redirection as needed Status: Acute Total time spent: Total time spent is greater than 50% in coordination of care (as documented) at patient's floor/unit and/or counseling patient: (5) Dementia: Problem comment: - MMSE 15/30 10/2022 -correlates to moderate dementia - follows with PCP for this Status: Acute Total time spent: Total time spent is greater than 50% in coordination of care (as documented) at patient's floor/unit and/or counseling patient: Plan Closed, minimally displaced, transverse left humeral shaft fracture Recommend non operative treatment consisting of; -Temporary immobilization in the splint followed by transition to a Barnes brace as an outpatient. -Continue to use the sling when out of bed. -No lifting, pushing, or pulling with the left upper extremity. -Continue oral pain medications as needed for pain control. Follow up in Orthopedic Clinic in 1-2 weeks at which time she will likely be converted to a Barnes brace.
--- NOTE | 2023-01-12 13:14 | PM.IMPN1 ---
Progress Note: A&P Assessment and plan (1) Closed left humeral fracture: Problem details: - Ortho consult, recommended continued splint and sling. Outpatient Orthopedic clinic follow-up 1-2 weeks - continue pain management with scheduled Tylenol, lidocaine patch, cool compress/ice as needed - PT consult, no acute needs identified - OT consult, recommended ongoing acute therapy Status: Acute (2) COVID: Problem details: - clinically stable at this time, asymptomatic - start Paxlovid prophylactically Status: Acute (3) Weakness: Problem details: - likely secondary to COVID - PT/OT consulted, certified social workers in health care for discharge planning/placement needs Status: Acute (4) Acute alteration in mental status: Problem details: - worsening of cognitive impairment in setting of COVID infection - PT/OT/certified social workers in health care Status: Acute (5) Dementia: Problem details: - MMSE 10/2022 -correlates to moderate dementia. Followed by PCP - OT consulted, recommending ongoing therapies - certified social workers in health care consulted, will work with family for most appropriate discharge plan Status: Acute Time Spent With Patient Total time spent: Total time spent caring for the patient today was 45 minutes. This includes time spent for the visit reviewing the chart, time spent during the visit, time spent after the visit and documentation and planning in coordination of care. Subjective Date Seen: 01/12/23 Interval history: Patient reports pain adequately managed at rest. Appropriately comments that it hurts when she moves it. Denies headache. Denies chest pain or shortness for breath. Tolerating orals without nausea vomiting. Denies symptomatology related to COVID infection. Exam Narrative: Exam Narrative: PHYSICAL EXAM General: Pleasant, conversant, NAD HEENT: Normocephalic, atraumatic, sclera white, EOMI, oral mucosa moist Cardiovascular: RRR, S1S2. No pitting edema Pulmonary: CTA bilaterally without rhonchi, rales, expiratory wheezes. No dyspnea Neurological: Alert, answering questions appropriately however not oriented other than to self, cranial nerves intact, no focal findings Extremities: No gross joint deformity or swelling. Left upper extremity in splint and sling. Moving all fingers. No significant distal swelling. Skin: Warm, dry. No rash Const: Vital Signs, click to edit/add: Vital Signs - 24 hr 01/11/23 14:55 01/11/23 15:38 01/11/23 16:22 Temperature 97.8 F Pulse Rate 92 Pulse Rate [Right Pulse Oximeter] 73 Respiratory Rate 18 Blood Pressure Blood Pressure [Ri ght Arm] Blood Pressure [Ri ght Upper Arm] 107/66 Blood Pressure [or thostatic lying Ri ght Arm] 122/78 Blood Pressure [or thostatic sitting Right Arm] 113/84 Blood Pressure [or thostatic standing Right Arm] 104/60 Pulse Oximetry 94 92 Oxygen Delivery Me thod Room Air 01/11/23 16:45 01/11/23 16:53 01/11/23 17:00 Temperature Pulse Rate 86 94 91 Pulse Rate [Right Pulse Oximeter] Respiratory Rate Blood Pressure 124/68 Blood Pressure [Ri ght Arm] Blood Pressure [Ri ght Upper Arm] Blood Pressure [or thostatic lying Ri ght Arm] Blood Pressure [or thostatic sitting Right Arm] Blood Pressure [or thostatic standing Right Arm] Pulse Oximetry 95 96 94 Oxygen Delivery Me thod 01/11/23 17:02 01/11/23 17:24 01/11/23 17:30 Temperature Pulse Rate 90 91 93 Pulse Rate [Right Pulse Oximeter] Respiratory Rate Blood Pressure 117/72 Blood Pressure [Ri ght Arm] Blood Pressure [Ri ght Upper Arm] Blood Pressure [or thostatic lying Ri ght Arm] Blood Pressure [or thostatic sitting Right Arm] Blood Pressure [or thostatic standing Right Arm] Pulse Oximetry 95 96 96 Oxygen Delivery Me thod 01/11/23 17:32 01/11/23 17:50 01/11/23 19:53 Temperature 98.5 F Pulse Rate 101 H Pulse Rate [Right Pulse Oximeter] 82 Respiratory Rate 20 16 Blood Pressure 111/70 Blood Pressure [Ri ght Arm] 136/85 Blood Pressure [Ri ght Upper Arm] Blood Pressure [or thostatic lying Ri ght Arm] Blood Pressure [or thostatic sitting Right Arm] Blood Pressure [or thostatic standing Right Arm] Pulse Oximetry 94 97 Oxygen Delivery Me thod Room Air 01/11/23 20:35 01/11/23 20:50 01/12/23 01:20 Temperature 98.5 F Pulse Rate Pulse Rate [Right Pulse Oximeter] 86 Respiratory Rate 16 16 Blood Pressure Blood Pressure [Ri ght Arm] Blood Pressure [Ri ght Upper Arm] Blood Pressure [or thostatic lying Ri ght Arm] Blood Pressure [or thostatic sitting Right Arm] Blood Pressure [or thostatic standing Right Arm] Pulse Oximetry 97 Oxygen Delivery Me thod Room Air 01/12/23 01:20 01/12/23 01:20 01/12/23 03:25 Temperature 98.1 F 98.2 F Pulse Rate Pulse Rate [Right Pulse Oximeter] 86 91 Respiratory Rate 16 16 16 Blood Pressure Blood Pressure [Ri ght Arm] 131/75 133/79 Blood Pressure [Ri ght Upper Arm] Blood Pressure [or thostatic lying Ri ght Arm] Blood Pressure [or thostatic sitting Right Arm] Blood Pressure [or thostatic standing Right Arm] Pulse Oximetry 95 95 97 Oxygen Delivery Me thod Room Air Room Air Room Air 01/12/23 07:00 01/12/23 07:00 01/12/23 07:00 Temperature 97.7 F Pulse Rate Pulse Rate [Right Pulse Oximeter] 95 95 Respiratory Rate 16 16 16 Blood Pressure Blood Pressure [Ri ght Arm] 135/87 Blood Pressure [Ri ght Upper Arm] Blood Pressure [or thostatic lying Ri ght Arm] Blood Pressure [or thostatic sitting Right Arm] Blood Pressure [or thostatic standing Right Arm] Pulse Oximetry 94 94 Oxygen Delivery Me thod Room Air Room Air 01/12/23 11:00 Temperature 98.3 F Pulse Rate Pulse Rate [Right Pulse Oximeter] 86 Respiratory Rate 16 Blood Pressure Blood Pressure [Ri ght Arm] 121/78 Blood Pressure [Ri ght Upper Arm] Blood Pressure [or thostatic lying Ri ght Arm] Blood Pressure [or thostatic sitting Right Arm] Blood Pressure [or thostatic standing Right Arm] Pulse Oximetry 99 Oxygen Delivery Me thod Room Air Labs Labs: Laboratory Results - last 24 hr 01/11/23 01/11/23 01/11/23 16:15 16:55 20:30 WBC 5.28 RBC 4.66 Hgb 13.4 Hct 40.6 MCV 87 MCH 29 MCHC 33 RDW Coeff of Alvin 13.1 Plt Count 160 Neut % (Auto) 81.6 H Lymph % (Auto) 8.7 L [place] % (Auto) 9.3 Eos % (Auto) 0.0 Baso % (Auto) 0.2 Neut # (Auto) 4.30 Lymph # (Auto) 0.50 L [place] # (Auto) 0.50 Eos # (Auto) 0.00 Baso # (Auto) 0.01 Abs Immat Gran (auto) 0.01 Imm/Tot Granulo (auto) 0.2 Sodium 137 Potassium 3.8 Chloride 102 Carbon Dioxide 24 Anion Gap 11 BUN 20 Creatinine 0.9 Estimated Creat Clear Estimated GFR 65 Glucose 112 Calcium 9.2 Magnesium 2.2 Total Bilirubin 0.5 AST 49 H ALT 29 Alkaline Phosphatase 81 Total Creatine Kinase 115 Troponin I < 0.01 L Total Protein 7.5 Albumin 4.2 Urine Color Yellow Urine Appearance Clear Urine pH 5.5 Ur Specific [place] >= 1.030 Urine Protein 2+ A Urine Glucose (UA) Negative Urine Ketones 2+ A Urine Blood Trace-intact A Urine Nitrite Negative Urine Bilirubin Negative Urine Urobilinogen 0.2 Ur Leukocyte Esterase Negative Urine RBC 0-2 Urine WBC 0-2 Ur Squamous Epith Cells Few Urine Bacteria None Hyaline Casts Few SARS-CoV-2 (PCR) POSITIVE SARS-CoV-2 A Influenza Type A (PCR) Negative PCR FLU A Influenza Type B (PCR) Negative PCR FLU B RSV (PCR) Negative PCR RSV Lab Acknowledgement Test Added 01/12/23 06:35 WBC RBC Hgb Hct MCV MCH MCHC RDW Coeff of Alvin Plt Count Neut % (Auto) Lymph % (Auto) [place] % (Auto) Eos % (Auto) Baso % (Auto) Neut # (Auto) Lymph # (Auto) [place] # (Auto) Eos # (Auto) Baso # (Auto) Abs Immat Gran (auto) Imm/Tot Granulo (auto) Sodium 135 Potassium 3.5 L Chloride 103 Carbon Dioxide 26 Anion Gap 6 L BUN 17 Creatinine 0.5 Estimated Creat Clear 39.39 Estimated GFR 95 Glucose 92 Calcium 9.0 Magnesium Total Bilirubin 0.4 AST 50 H ALT 27 Alkaline Phosphatase 70 Total Creatine Kinase Troponin I Total Protein 6.7 Albumin 3.7 Urine Color Urine Appearance Urine pH Ur Specific [place] Urine Protein Urine Glucose (UA) Urine Ketones Urine Blood Urine Nitrite Urine Bilirubin Urine Urobilinogen Ur Leukocyte Esterase Urine RBC Urine WBC Ur Squamous Epith Cells Urine Bacteria Hyaline Casts SARS-CoV-2 (PCR) Influenza Type A (PCR) Influenza Type B (PCR) RSV (PCR) Lab Acknowledgement
[2023-01-12] MEDS: LIDOCAINE 5% PATCH 1 PATCH TRANSDERMA (14:00)
[2023-01-12] MEDS: ACETAMINOPHEN 325 MG TABLET 975 MG PO ×2 (14:01→19:10)
--- NOTE | 2023-01-12 17:41 | PC.NURSE ---
End of shift: Patient is alert and oriented to self and year of . Hx of dementia, seems to forget things but good at recall at times. OT recommends ongoing acute therapy as she also only has the use of her right hand. consumer services advisor to follow up with family, per OT. Patient VSS, RA, lungs are clear to auscultation. Assist of 1 to chair and BR. Patient is quick at getting up from the bed and chair at times so all alarms are in use. IV in right forearm SL, patent and covered with coban to deter patient from pulling it out. Patients left arm in sling and splint. C/O pain only when moving arm. Lidocaine patch applied to back shoulder of left arm. Patient on reg diet, tolerating well.
--- NOTE | 2023-01-12 17:45 | PC.SOCIAL ---
Discharge planning: Spoke with daughter, Emely, who states pt lives by herself and the only services she uses from the [facility] is home delivered meals. Pt has recently gone on Medical Assistance and has Tahira Goldstein as her [facility] case fitter. Emely states they ahve been discussing memory care assisted living but that nothing has been done with this. Emely states she plans to visit facilities. Shared with dtr that there are very limited facility availability for Medical Assistance payment and suggested she ask this when she is contacting assisted living facilities she is interested in touring. Dtr is aware that there is a process for admit to assisted living and that generally pt's go to intermediate from the hospital when a higher level of care is needed. Dtr would agree with a intermediate placement at discharge and is aware there may be limited availability due to pt's positive COVID test. Dtr shared that moving pt in with her or her providing additional care at the patient's home are not options for discharge and that she will need placement in a intermediate facility. feed elevator worker to follow up as needed.
[2023-01-12] MEDS: SODIUM CHLORIDE 0.9 % (FLUSH) 10 ML SYRINGE 5 ML IVF (19:10)
[2023-01-12] MEDS: MELATONIN 3 MG TABLET 6 MG PO (20:32)
[2023-01-12] MEDS: MIRTAZAPINE 15 MG TABLET PO (20:33)
[2023-01-12] MEDS: ENOXAPARIN 40 MG/0.4 ML INJ SUBCUT (20:33)
[2023-01-12] MEDS: DONEPEZIL 10 MG TABLET PO (20:33)
--- NOTE | 2023-01-12 22:30 | PC.NURSE ---
Shift [id number]- Patient denies pain, left arm remains in sling. She uses left hand to help use phone. JOSE in attendance to monitor and ready to asssist, as patient leaves bed quickly, independently. She is SBA. She is unable to state her birthday at medication pass this evening.
[2023-01-13] MEDS: ACETAMINOPHEN 325 MG TABLET 975 MG PO ×4 (01:54→20:32)
[2023-01-13 03:04] VITALS: BP 150/95; PULSE 83; RESP 18; TEMP 36.6; O2SAT 99
[2023-01-13 07:00] VITALS: BP 118/78; PULSE 109; PULSE 85; RESP 18; TEMP 36.4; O2SAT 99
[2023-01-13 07:00] LABS: Chloride* 105 mmol/L (96-114); Potassium* 3.6 mmol/L (3.6-5.1); Sodium* 139 mmol/L (135-149)
[2023-01-13 07:02] LABS: Creatinine* 0.4 mg/dL (0.5-1.5); Est. Creatinine Clearance* 39.39; Estimated Glomerular Filt Rate 101 ml/min
[2023-01-13 07:03] LABS: Anion Gap 9 mEq/L (7-15); Blood Urea Nitrogen* 13 mg/dL (7-30); Calcium* 9.1 mg/dL (8.4-10.6); Carbon Dioxide* 25 mmol/L (20-32); Glucose* 89 mg/dL (60-115)
[2023-01-13] MEDS: LEVOTHYROXINE 75 MCG TABLET PO (08:45)
[2023-01-13] MEDS: FLUOXETINE HCL 20 MG CAPSULE PO (08:45)
[2023-01-13] MEDS: SODIUM CHLORIDE 0.9 % (FLUSH) 10 ML SYRINGE 5 ML IVF ×2 (09:00→20:34)
[2023-01-13 11:00] VITALS: BP 120/79; PULSE 85; RESP 18; TEMP 36.6; O2SAT 96
--- NOTE | 2023-01-13 12:33 | PM.IMPN1 ---
Progress Note: A&P Assessment and plan (1) Closed left humeral fracture: Problem details: - Ortho consult, recommended continued splint and sling. Outpatient Orthopedic clinic follow-up 1-2 weeks - continue pain management with scheduled Tylenol, lidocaine patch, cool compress/ice as needed - PT consult, no acute needs identified - OT consult, recommended ongoing acute therapy Status: Acute (2) COVID: Problem details: - clinically stable at this time, asymptomatic - day 3 of 5 of Paclovid Status: Acute (3) Weakness: Problem details: - likely secondary to COVID - PT/OT consulted, executive secretary social welfare for discharge planning/placement needs Status: Acute (4) Acute alteration in mental status: Problem details: - worsening of cognitive impairment in setting of COVID infection - PT/OT/executive secretary social welfare Status: Acute (5) Dementia: Problem details: - MMSE 10/2022 -correlates to moderate dementia. Followed by PCP - OT consulted, recommending ongoing therapies - executive secretary social welfare consulted, will work with family for most appropriate discharge plan Status: Acute Subjective Date Seen: 01/13/23 Interval history: Daily Progress Note - Hospital Medicine Day #: 3 CC: Proximal left humerus fracture, COVID-19, dementia OVERNIGHT UPDATES FROM STAFF & MED, LAB, IMAGING UPDATES RN note Shift [id number]- Patient denies pain, left arm remains in sling. She uses left hand to help use phone. JOSE in attendance to monitor and ready to asssist, as patient leaves bed quickly, independently. She is SBA. She is unable to state her birthday at medication pass this evening. Vitals are all stable. She is afebrile. She is on room air satting 96%. Chemistries drawn this morning showed improved potassium, which is now normal. -head CT reviewed. No acute abnormality. -chest x-ray reviewed. No significant findings. -left humerus:Acute mildly displaced horizontal humeral diaphyseal fracture. -CT neck-no acute findings Objective: NAD, speaks in short sentences. Cannot name her current location (hospital). Vitals: see above Lungs: Clear. Cardiac: S1S2. Left arm: Is in a sling. Good radial pulses. Warm extremity. Able to follow commands for thumbs up, a okay, tapping her fingers. Disposition/Potential discharge - Likely to need short-term rehab and longer term dementia care Today I spent 50minutes seeing the patient, reviewing Expanse and EPIC notes/diagnostics, discussing the care plan with our care time that includes social work, PT/OT, pharmacy, RT, care home and documenting my impressions and plan in the medical record. ACP first 30 mins [id number] I went over options for care during this current hospitalization and explained the difference between short term rehab, alternative care/EW/MA for dementia. I described the likelihood of returning to previous functioning and what the options are going forward for care. Exam Const: Vital Signs, click to edit/add: Vital Signs - 24 hr 01/12/23 14:47 01/12/23 14:47 01/12/23 14:47 Temperature 97.6 F Pulse Rate [Right Pulse Oximeter] 85 85 Respiratory Rate 16 16 16 Blood Pressure [Ri ght Arm] 130/78 Pulse Oximetry 96 96 Oxygen Delivery Me thod Room Air Room Air 01/12/23 19:15 01/12/23 23:14 01/12/23 23:31 Temperature 97.4 F L 97.3 F L Pulse Rate [Right Pulse Oximeter] 91 83 Respiratory Rate 18 16 16 Blood Pressure [Ri ght Arm] 153/98 H 150/78 H Pulse Oximetry 96 96 96 Oxygen Delivery Me thod Room Air Room Air Room Air 01/13/23 03:04 01/13/23 07:00 01/13/23 07:00 Temperature 97.8 F 97.5 F L Pulse Rate [Right Pulse Oximeter] 83 109 H Respiratory Rate 18 18 18 Blood Pressure [Ri ght Arm] 150/95 H 118/78 Pulse Oximetry 99 99 99 Oxygen Delivery Me thod Room Air Room Air Room Air 01/13/23 07:00 01/13/23 11:00 Temperature 98 F Pulse Rate [Right Pulse Oximeter] 85 85 Respiratory Rate 18 18 Blood Pressure [Ri ght Arm] 120/79 Pulse Oximetry 96 Oxygen Delivery Me thod Room Air Labs Labs: Laboratory Results - last 24 hr 01/13/23 06:10 Sodium 139 Potassium 3.6 Chloride 105 Carbon Dioxide 25 Anion Gap 9 BUN 13 Creatinine 0.4 L Estimated Creat Clear 39.39 Estimated GFR 101 Glucose 89 Calcium 9.1
[2023-01-13 15:00] VITALS: BP 152/89; PULSE 83; RESP 18; TEMP 36.6; O2SAT 97
[2023-01-13] MEDS: LIDOCAINE 5% PATCH 1 PATCH TRANSDERMA (16:05)
[2023-01-13 19:00] VITALS: BP 167/104; PULSE 76; RESP 18; TEMP 36.3; O2SAT 95
--- NOTE | 2023-01-13 19:07 | PC.NURSE ---
Nursing Care Hours: [id number] Pt this shift confused and anxious in morning. Alert only to self. Was able to be reoriented by staff and family members. Calm and cooperative, VSS, LS clear, and no c/o pain. Scheduled Acetaminophen given along with ice pack. CMS intact, moderate director card strength. Pt not using call light and will set off bed alarm. Steady gait and staff posted outside of door. Eating and drinking sufficiently.
[2023-01-13] MEDS: ENOXAPARIN 40 MG/0.4 ML INJ SUBCUT (20:33)
[2023-01-13] MEDS: MIRTAZAPINE 15 MG TABLET PO (20:33)
[2023-01-13] MEDS: DONEPEZIL 10 MG TABLET PO (20:35)
--- NOTE | 2023-01-13 23:00 | PC.NURSE ---
Shift note: Pt continue to be confusion. JOSE 1:1 observation throughout the shift. Denied to to the left arm. No cough, SOB, and fever noted. Self transferred several times this shift. Takes pill whole with water. Vitally stable.
[2023-01-13 23:33] VITALS: RESP 18; O2SAT 95
[2023-01-14] VITALS (8 sets, daily range): BP systolic 131–151; BP diastolic 49–99; PULSE 72–88; RESP 16–81; TEMP 36.4–36.8; O2SAT 93–98
[2023-01-14] MEDS: ACETAMINOPHEN 325 MG TABLET 975 MG PO ×3 (02:13→16:12)
[2023-01-14] MEDS: LEVOTHYROXINE 75 MCG TABLET PO (05:51)
--- NOTE | 2023-01-14 06:54 | PC.NURSE ---
23-07: Pt rested well, no issues overnight, pain controlled.
[2023-01-14] MEDS: FLUOXETINE HCL 20 MG CAPSULE PO (10:28)
[2023-01-14] MEDS: SODIUM CHLORIDE 0.9 % (FLUSH) 10 ML SYRINGE 5 ML IVF ×2 (10:29→20:35)
--- NOTE | 2023-01-14 11:19 | PM.IMPN1 ---
Progress Note: A&P Assessment and plan (1) Closed left humeral fracture: Problem details: - Ortho consult, recommended continued splint and sling. Outpatient Orthopedic clinic follow-up 1-2 weeks - continue pain management with scheduled Tylenol, lidocaine patch, cool compress/ice as needed - PT consult, no acute needs identified - OT consult, recommended ongoing acute therapy Status: Acute (2) COVID: Problem details: - clinically stable at this time, asymptomatic - day 4 of 5 of Paclovid Status: Acute (3) Weakness: Problem details: - likely secondary to COVID - PT/OT consulted, socially responsible investment adviser for discharge planning/placement needs Status: Acute (4) Acute alteration in mental status: Problem details: - worsening of cognitive impairment in setting of COVID infection - 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 Status: Acute (5) Dementia: Problem details: - MMSE 10/2022 -correlates to moderate dementia. Followed by PCP - OT consulted, recommending ongoing therapies - socially responsible investment adviser consulted, will work with family for most appropriate discharge plan Status: Acute Subjective Date Seen: 01/14/23 Interval history: Daily Progress Note - Hospital Medicine Day #: 4 CC: Proximal left humerus fracture, COVID-19, dementia OVERNIGHT UPDATES FROM STAFF & MED, LAB, IMAGING UPDATES RN note: : Pt rested well, no issues overnight, pain controlled. Vitals are all stable. She is afebrile. She is on room air satting 96%. -head CT reviewed. No acute abnormality. -chest x-ray reviewed. No significant findings. -left humerus:Acute mildly displaced horizontal humeral diaphyseal fracture. -CT neck-no acute findings Objective: NAD, speaks in short sentences. Vitals: see above Lungs: Clear. Cardiac: S1S2. Left arm: Is in a sling. Good radial pulses. Warm extremity. Able to follow commands for thumbs up, a okay, tapping her fingers. Disposition/Potential discharge - Likely to need short-term rehab and longer term dementia care Today I spent 50minutes seeing the patient, reviewing Expanse and EPIC notes/diagnostics, discussing the care plan with our care time that includes social work, PT/OT, pharmacy, RT, [facility] and documenting my impressions and plan in the medical record. Exam Const: Vital Signs, click to edit/add: Vital Signs - 24 hr 01/13/23 15:00 01/13/23 15:00 01/13/23 15:00 Temperature 97.9 F Pulse Rate [Right Pulse Oximeter] 83 83 Respiratory Rate 18 18 18 Blood Pressure [Ri ght Arm] 152/89 H Pulse Oximetry 97 97 Oxygen Delivery Me thod Room Air Room Air 01/13/23 19:00 01/13/23 23:33 01/14/23 02:15 Temperature 97.4 F L 97.6 F Pulse Rate [Right Pulse Oximeter] 76 72 Respiratory Rate 18 18 18 Blood Pressure [Ri ght Arm] 167/104 H 137/76 Pulse Oximetry 95 95 95 Oxygen Delivery Me thod Room Air Room Air Room Air 01/14/23 02:16 01/14/23 06:08 01/14/23 07:00 Temperature 98 F 98.2 F Pulse Rate [Right Pulse Oximeter] 72 84 Respiratory Rate 18 81 H 18 Blood Pressure [Ri ght Arm] 135/85 144/99 H Pulse Oximetry 93 96 Oxygen Delivery Me thod Room Air Room Air
[2023-01-14] MEDS: LIDOCAINE 5% PATCH 1 PATCH TRANSDERMA (14:35)
--- NOTE | 2023-01-14 14:59 | PC.NURSE ---
Patient oriented to self only. Calm and directable this shift. Up to the bathroom frequently without any assistive devices - demonstrates a steady gait. Bed alarm remains on for safety. Pt was continent with loose stools. Appetite was poor. Denies pain in left arm. Splint to left arm and sling remains in place. CMS intact to left upper extremity. Ice offered and scheduled tylenol was given.
[2023-01-14] MEDS: DONEPEZIL 10 MG TABLET PO (20:33)
[2023-01-14] MEDS: MELATONIN 3 MG TABLET 6 MG PO (20:33)
[2023-01-14] MEDS: MIRTAZAPINE 15 MG TABLET PO (20:33)
[2023-01-14] MEDS: ENOXAPARIN 40 MG/0.4 ML INJ SUBCUT (20:36)
--- NOTE | 2023-01-14 21:36 | PC.NURSE ---
Pt alert to self. Pt SBA. Pt does attempt to self transfer. Pt had no complaints of pain. ?Pt takes medications whole.
[2023-01-15] VITALS (7 sets, daily range): BP systolic 122–139; BP diastolic 76–87; PULSE 85–88; RESP 16–20; TEMP 36.3–37.1; O2SAT 93–96
[2023-01-15] MEDS: LEVOTHYROXINE 75 MCG TABLET PO (06:22)
[2023-01-15] MEDS: FLUOXETINE HCL 20 MG CAPSULE PO (08:55)
--- NOTE | 2023-01-15 09:57 | PC.SOCIAL ---
Discharge planning: Received call from [facility] worker, Ruth [phone], who states she is pt;s [facility] worker as of 01/05/23. Ruth confirmed pt lives at [facility] and has a lifeline, delivered frozen meals and a med dispenser at home already. She states pt and family have refused placement in assisted living previously, but pt is on the waiver, so if assisted living placement was located that accept waiver payment, this could be an option. [employer]worker [employer] to continue to look for [facility] or assisted living placement for pt at discharge. Called [facility] admissoins and left message requesting call back regarding [facility] availability. farmworker [employer] to follow up as needed.
[2023-01-15] MEDS: ACETAMINOPHEN 325 MG TABLET 975 MG PO ×2 (11:03→16:40)
--- NOTE | 2023-01-15 12:35 | PM.IMPN1 ---
Progress Note: A&P Assessment and plan (1) Closed left humeral fracture: Problem details: - Ortho consult, recommended continued splint and sling. Outpatient Orthopedic clinic follow-up 1-2 weeks - continue pain management with scheduled Tylenol, lidocaine patch, cool compress/ice as needed - PT consult, no acute needs identified - OT consult, recommended ongoing acute therapy Status: Acute (2) COVID: Problem details: - clinically stable at this time, asymptomatic - empiric Paxlovid (01/12) Status: Acute (3) Weakness: Problem details: - likely secondary to COVID - PT/OT/SW following as patient will likely need TCU upon discharge Status: Acute (4) Acute alteration in mental status: Problem details: - worsening of cognitive impairment in setting of COVID infection - PT/OT/social services coordinator Status: Acute (5) Dementia: Problem details: - MMSE 10/2022 -correlates to moderate dementia. Followed by PCP - OT consulted, recommending ongoing therapies - social services coordinator consulted, will work with family for most appropriate discharge plan Status: Acute Plan - per above Subjective Date Seen: 01/15/23 Interval history: Cherry was admitted to the hospital on 01/11 for a left humeral fracture after a fall at home, incidentally diagnosed with COVID in emergency room. She has memory impairment and requires occasional redirection. No agitation. She has no concerns for the hospitalist team this morning. Exam Narrative: Exam Narrative: GEN: Alert and pleasant, just finished breakfast HEENT: EOMIs bilaterally, no scleral icterus CV: RRR, No concerning murmurs, rubs, or gallops R: LCTA bilaterally without concerning wheezing, rales, or rhonchi Ext: Left upper extremity is in a sling. He has normal peripheral pulses at the left wrist, normal capillary refill and normal brush head maker strength Skin: No concerning skin lesions or rashes on exposed skin Neuro: Nonfocal Psych: Appropriate for chronic conditions Const: Vital Signs, click to edit/add: Vital Signs - 24 hr 01/14/23 16:05 01/14/23 16:05 01/14/23 19:00 Temperature 97.7 F 97.6 F Pulse Rate [Right Pulse Oximeter] 81 88 Respiratory Rate 18 18 18 Blood Pressure [Ri ght Arm] 151/93 H 131/98 H Pulse Oximetry 96 98 97 Oxygen Delivery Me thod Room Air Room Air Room Air Oxygen Flow Rate 01/14/23 23:00 01/14/23 23:00 01/14/23 23:00 Temperature Pulse Rate [Right Pulse Oximeter] Respiratory Rate 18 16 16 Blood Pressure [Ri ght Arm] Pulse Oximetry Oxygen Delivery Me thod Oxygen Flow Rate 01/15/23 07:00 01/15/23 08:45 01/15/23 08:45 Temperature 98.3 F Pulse Rate [Right Pulse Oximeter] 87 87 Respiratory Rate 18 18 18 Blood Pressure [Ri ght Arm] 139/87 Pulse Oximetry 93 93 Oxygen Delivery Me thod Nasal Cannula Nasal Cannula Oxygen Flow Rate 1 1 01/15/23 11:00 Temperature 97.3 F L Pulse Rate [Right Pulse Oximeter] 88 Respiratory Rate 20 Blood Pressure [Ri ght Arm] 122/79 Pulse Oximetry 94 Oxygen Delivery Me thod Room Air Oxygen Flow Rate
[2023-01-15] MEDS: LIDOCAINE 5% PATCH 1 PATCH TRANSDERMA (13:35)
--- NOTE | 2023-01-15 15:38 | PC.SOCIAL ---
Addendum entered by Mellisa Persaud SHIPPING AND RECEIVING WEIGHER 01/15/23 15:49: Discharge planning: Called dtrMissy, and provided her with information on [facility] being able to accept pt after COVID isolation. Dtr to contact [facility] to discuss and for a tour. structural steel worker to follow up as needed. Original Note: Discharge planning: Spoke with dtrMissy, who states she has spoken with the [facility] worker and would be pleased if a memory care assisted living facility could be located for pt at discharge. Answered daughters questions about how the Medical Assistance waiver works for coverage and the limited facilities that accept the waiver as payment. Dtr had been looking at [facility] but thought jacinto had memory care at that facility. Dtr requested pt be evaluated for admit to the [facility]. Received call back from Heike at the [facility], stating they can accept pt for admission to their memory care assisted living after she has completed 10 days of COVID isolation, which is January 22. This stay would be covered by her Medical Assistance waiver and an in person assessment would not be needed as they have already completed this step. [facility] is not able to accept her for a transitional stay with COVID. Called nursing homes in [place] and [place] and currently there are no local nursing homes accepting pt's who are COVID positive.
--- NOTE | 2023-01-15 17:45 | PC.NURSE ---
Patient ambulates and toilets self independently in room. Tolerated regular diet. Patient denies any pain or SOB. IV was DC'd per MD due to redness, puffiness and warmth at site. Patient denied discomfort to site.
[2023-01-15] MEDS: MELATONIN 3 MG TABLET 6 MG PO (20:11)
[2023-01-15] MEDS: DONEPEZIL 10 MG TABLET PO (20:12)
[2023-01-15] MEDS: ENOXAPARIN 40 MG/0.4 ML INJ SUBCUT (20:12)
[2023-01-15] MEDS: MIRTAZAPINE 15 MG TABLET PO (20:12)
[2023-01-16 02:02] VITALS: BP 148/86; PULSE 100; RESP 18; TEMP 37.6; O2SAT 96
[2023-01-16 03:00] VITALS: O2SAT 95
[2023-01-16] MEDS: ACETAMINOPHEN 325 MG TABLET 975 MG PO ×4 (03:16→21:36)
--- NOTE | 2023-01-16 04:45 | PC.NURSE ---
End of Shift: Orientated to self only. VS on RA, no SOB, afebrile. Up ad tammi. L shoulder fracture is in sling, no plans for surgery. No reports of pain, just that her arm is stiff/sore. No other complaints. L shoulder lidocaine patch was removed. Call light within reach.
[2023-01-16 07:00] VITALS: BP 132/80; PULSE 93; RESP 20; TEMP 36.2; O2SAT 95
[2023-01-16] MEDS: FLUOXETINE HCL 20 MG CAPSULE PO (09:48)
[2023-01-16] MEDS: LEVOTHYROXINE 75 MCG TABLET PO (09:48)
[2023-01-16 11:00] VITALS: BP 117/76; PULSE 84; RESP 20; TEMP 36.1; O2SAT 96
[2023-01-16] MEDS: LIDOCAINE 5% PATCH 1 PATCH TRANSDERMA (12:49)
--- NOTE | 2023-01-16 12:49 | PM.IMPN1 ---
Progress Note: A&P Assessment and plan (1) Closed left humeral fracture: Problem details: - Ortho consult, recommended continued splint and sling, outpatient clinic f/u 1-2 weeks - continue pain management with scheduled Tylenol, lidocaine patch, cool compress/ice as needed - PT consult, no acute needs identified - OT consult, recommended ongoing acute therapy Status: Acute (2) COVID: Problem details: - clinically stable at this time, asymptomatic and stable on RA - empiric Paxlovid (01/12) Status: Acute (3) Weakness: Problem details: - likely secondary to COVID - PT/OT/SW following as patient will likely need TCU upon discharge Status: Acute (4) Acute alteration in mental status: Problem details: - worsening of cognitive impairment in setting of COVID infection - PT/OT/social insurance adviser Status: Acute (5) Dementia: Problem details: - MMSE 10/2022 -correlates to moderate dementia. Followed by PCP - OT consulted, recommending ongoing therapies - social insurance adviser consulted, will work with family for most appropriate discharge plan Status: Acute Plan - lovenox for ppx - memory care d/c on 01/22 Subjective Date Seen: 01/16/23 Interval history: Cherry was admitted to the hospital on 01/11 for a left humeral fracture after a fall at home. She was also found to be + for COVID in the ED. She remains stable on RA. This morning, she notes intermittent pain in her L arm (none while at rest). She's wearing her sling. She has been accepted to a memory care facility for next week. Exam Narrative: Exam Narrative: GEN: Alert and laying comfortably in bed, appears younger than stated age HEENT: EOMIs bilaterally, no scleral icterus CV: RRR, No concerning murmurs R: LCTA bilaterally, no wheezing, air movement adequate Ext: wearing sling on LUE, able to move L fingers with normal capillary refill and normal peripheral pulses Skin: No concerning skin lesions or rashes on exposed skin Neuro: No focal deficits Psych: Appropriate Const: Vital Signs, click to edit/add: Vital Signs - 24 hr 01/15/23 15:00 01/15/23 15:00 01/15/23 15:00 Temperature 98.7 F Pulse Rate [Right Pulse Oximeter] 85 85 Respiratory Rate 18 18 18 Blood Pressure [Ri ght Arm] 124/82 Pulse Oximetry 96 96 Oxygen Delivery Me thod Room Air Room Air 01/15/23 20:10 01/15/23 23:15 01/15/23 23:45 Temperature 98.6 F Pulse Rate [Right Pulse Oximeter] 88 Respiratory Rate 16 Blood Pressure [Ri ght Arm] 135/76 Pulse Oximetry 96 95 95 Oxygen Delivery Me thod Room Air Room Air Room Air 01/16/23 02:02 01/16/23 03:00 01/16/23 07:00 Temperature 99.6 F 97.1 F L Pulse Rate [Right Pulse Oximeter] 100 93 Respiratory Rate 18 20 Blood Pressure [Ri ght Arm] 148/86 H 132/80 Pulse Oximetry 96 95 95 Oxygen Delivery Me thod Room Air Room Air Room Air 01/16/23 07:00 01/16/23 11:00 Temperature 97 F L Pulse Rate [Right Pulse Oximeter] 84 Respiratory Rate 20 20 Blood Pressure [Ri ght Arm] 117/76 Pulse Oximetry 95 96 Oxygen Delivery Me thod Room Air Room Air
[2023-01-16 15:00] VITALS: RESP 20; O2SAT 94
--- NOTE | 2023-01-16 16:38 | PC.NURSE ---
Patient alert to self, cooperative, with flat affect. Patient mood improved with mention of family and personal interests. Daughter visited briefly over lunch. Patient declines pain, but protective of left arm. See MAR for interventions and ice pack given for comfort. Tolerating regular diet. Steady gait and independent in room. Left arm in sling per orders.
[2023-01-16 21:00] VITALS: BP 125/76; PULSE 94; RESP 20; TEMP 37.2; O2SAT 94
[2023-01-16] MEDS: MELATONIN 3 MG TABLET 6 MG PO (21:36)
[2023-01-16] MEDS: MIRTAZAPINE 15 MG TABLET PO (21:36)
[2023-01-16] MEDS: ENOXAPARIN 40 MG/0.4 ML INJ SUBCUT (21:37)
[2023-01-16] MEDS: DONEPEZIL 10 MG TABLET PO (21:37)
--- NOTE | 2023-01-16 23:45 | PC.NURSE ---
Pt ambulating around room independently. Hunting Guide assisted pt to set up her meal tray and pt was able to feed herself. Good appetite, she consumed about 75% of her meal. Pt took initiative to complete her HS cares independently including brushing her teeth. Unable to rate pain with the pain scale but does state it hurts quite a bit, especially with movement. Splint in place, radial pulse to left hand intact, cap refill less than 3 seconds, and fingers warm to the touch. Left extremity splint supported with pillows at HS. VS WNL.
[2023-01-17 02:05] VITALS: RESP 18
[2023-01-17] MEDS: ACETAMINOPHEN 325 MG TABLET 975 MG PO ×3 (04:02→21:49)
[2023-01-17 07:04] LABS: Basophils Absolute Auto 0.02 K/uL (0.00-0.30); Basophils Percent Auto 0.3 % (0.0-3.0); Eosinophils Absolute Auto 0.03 K/uL (0.00-0.50); Eosinophils Percent Auto 0.4 % (0.0-7.0); Hematocrit 38.4 % (33.0-51.0); Immature Granulocytes Abs Auto 0.01 K/uL (0.00-0.30); Immature Granulocytes Pct Auto 0.1 %; Mean Corpuscular HGB Conc 34 gm/dL (32-36); Mean Corpuscular Hemoglobin 29 pg (26-34); Mean Corpuscular Volume 85 fL (80-100); Neutrophils Percent Auto 73.2 % (42.0-72.0); Platelet Count* 182 K/uL (140-440); RDW Coefficient of Variation % 12.9 % (11.5-15.5); Red Blood Count 4.54 m/uL (4.00-5.20); White Blood Count* 6.84 K/uL (4.50-11.00)
[2023-01-17 07:07] LABS: Chloride* 103 mmol/L (96-114); Sodium* 138 mmol/L (135-149)
[2023-01-17 07:09] LABS: Slide Review Reflex No
[2023-01-17 07:10] LABS: Anion Gap 8 mEq/L (7-15); Blood Urea Nitrogen* 24 mg/dL (7-30); Carbon Dioxide* 27 mmol/L (20-32); Creatinine* 0.6 mg/dL (0.5-1.5); Est. Creatinine Clearance* 39.39; Estimated Glomerular Filt Rate 91 ml/min; Glucose* 89 mg/dL (60-115)
[2023-01-17 07:11] LABS: Calcium* 9.2 mg/dL (8.4-10.6)
--- NOTE | 2023-01-17 07:11 | PC.NURSE ---
Pt is oriented to self only. Pt is unable to rate pain on 0-10 scale but reports pain when asked if she is in pain, when asked how strong the pain is pt stated ?It?s there, I notice it more with movement?. Pain managed with scheduled Tylenol. Pt denies, chest pain, and N/V. Pt kept left arm sling and brace on throughout night. Pt is up SBA with walker gait belt, and tolerating a regular diet. Pt slept throughout most of night. Night uneventful. lidocaine patch was removed from left shoulder protocol/orders, skin intact.
[2023-01-17] MEDS: LEVOTHYROXINE 75 MCG TABLET PO (07:33)
[2023-01-17 08:53] VITALS: BP 142/91; PULSE 54; RESP 18; TEMP 36.9; O2SAT 94
[2023-01-17] MEDS: FLUOXETINE HCL 20 MG CAPSULE PO (08:56)
--- NOTE | 2023-01-17 11:43 | P.IMPN_ITS ---
Progress Note: A&P Assessment and plan (1) Closed left humeral fracture: Problem details: - Ortho consult, recommended continued splint and sling, outpatient clinic f/u 1-2 weeks - continue pain management with scheduled Tylenol, lidocaine patch, cool compress/ice as needed - PT consult, no acute needs identified - OT consult, recommended ongoing acute therapy Status: Acute (2) COVID: Problem details: - clinically stable at this time, asymptomatic and stable on RA - empiric Paxlovid (01/12) Status: Acute (3) Weakness: Problem details: - likely secondary to COVID - PT/OT/SW following; plan to discharge patient to Memory Care apartment after 10 day COVID quarantine Status: Acute (4) Acute alteration in mental status: Problem details: - worsening of cognitive impairment in setting of COVID infection - PT/OT/social media sr strategy manager Status: Acute (5) Dementia: Problem details: - MMSE 10/2022 -correlates to moderate dementia Status: Acute (6) Hypokalemia: Problem details: - noted on 01/17, replace and follow Status: Acute Plan - per above with d/c on 01/22 - lovenox for ppx Subjective Date Seen: 01/17/23 Interval history: Cherry was admitted on 01/11 for a left humeral fracture following a fall at home; incidentally tested + for COVID in the ED. She remains stable with normal VS; potassium noted to be low on 01/17. Dispo: Cherry has been accepted to a memory care facility for next week. Exam Narrative: Exam Narrative: GEN: Resting comfortably in bed, nontoxic CV: Pulse palpates as RRR R: Breathing comfortably without tachypnea or audible wheezing Ext: Sling in place on left upper extremity, normal pulses and movement of left hand and fingers Skin: No concerning skin lesions or rashes on exposed skin Const: Vital Signs, click to edit/add: Vital Signs - 24 hr 01/16/23 15:00 01/16/23 15:00 01/16/23 21:00 Temperature 98.9 F Pulse Rate [Right Pulse Oximeter] 94 Respiratory Rate 20 20 20 Blood Pressure [Ri ght Arm] 125/76 Pulse Oximetry 94 94 Oxygen Delivery Me thod Room Air Room Air Oxygen Flow Rate 1 01/17/23 02:05 01/17/23 02:05 01/17/23 08:53 Temperature Pulse Rate [Right Pulse Oximeter] Respiratory Rate 18 18 Blood Pressure [Ri ght Arm] Pulse Oximetry 94 Oxygen Delivery Me thod Room Air Room Air Oxygen Flow Rate 01/17/23 08:53 Temperature 98.5 F Pulse Rate [Right Pulse Oximeter] 54 L Respiratory Rate 18 Blood Pressure [Ri ght Arm] 142/91 H Pulse Oximetry 94 Oxygen Delivery Me thod Room Air Oxygen Flow Rate Labs Labs: Laboratory Results - last 24 hr 01/17/23 06:35 WBC 6.84 RBC 4.54 Hgb 13.0 Hct 38.4 MCV 85 MCH 29 MCHC 34 RDW Coeff of Alvin 12.9 Plt Count 182 Neut % (Auto) 73.2 H Lymph % (Auto) 19.0 L Hawkins % (Auto) 7.0 Eos % (Auto) 0.4 Baso % (Auto) 0.3 Neut # (Auto) 5.00 Lymph # (Auto) 1.30 Hawkins # (Auto) 0.50 Eos # (Auto) 0.03 Baso # (Auto) 0.02 Abs Immat Gran (auto) 0.01 Imm/Tot Granulo (auto) 0.1 Sodium 138 Potassium 3.0 L Chloride 103 Carbon Dioxide 27 Anion Gap 8 BUN 24 Creatinine 0.6 Estimated Creat Clear 39.39 Estimated GFR 91 Glucose 89 Calcium 9.2
[2023-01-17] MEDS: LIDOCAINE 5% PATCH 1 PATCH TRANSDERMA (13:15)
[2023-01-17] MEDS: POTASSIUM BICARB 25 MEQ EFFERVESCENT TAB 50 MEQ PO (13:16)
[2023-01-17 14:12] VITALS: BMI 24.4
[2023-01-17 15:00] VITALS: PULSE 100; RESP 16; O2SAT 96
[2023-01-17 18:00] VITALS: BP 115/78; PULSE 100; RESP 16; TEMP 36.2; O2SAT 96
[2023-01-17] MEDS: POTASSIUM BICARB 25 MEQ EFFERVESCENT TAB PO (18:16)
[2023-01-17] MEDS: ENOXAPARIN 40 MG/0.4 ML INJ SUBCUT (21:01)
[2023-01-17] MEDS: MIRTAZAPINE 15 MG TABLET PO (21:02)
[2023-01-17] MEDS: DONEPEZIL 10 MG TABLET PO (21:02)
[2023-01-17] MEDS: MELATONIN 3 MG TABLET 6 MG PO (21:56)
--- NOTE | 2023-01-17 22:06 | PC.NURSE ---
VSS, RA. Some pain in left shoulder w/ movement, relieved w/ scheduled tylenol. Tolerating regular diet, 600 cc fluids in. Voided x3. Small BM x1. Up independently in room. No IV. Family here for dinner. Trouble falling asleep, PRN 6 mg melatonin given. Will continue to monitor, follow POC, and keep pt and family updated. Klarissa Nolasco RN
[2023-01-17 23:00] VITALS: RESP 16
--- NOTE | 2023-01-18 05:16 | PC.NURSE ---
[id number] Pt slept well entire night, no new concerns
[2023-01-18 06:55] LABS: Chloride* 104 mmol/L (96-114)
[2023-01-18 06:56] LABS: Potassium* 3.6 mmol/L (3.6-5.1); Sodium* 139 mmol/L (135-149)
[2023-01-18 06:58] LABS: Anion Gap 7 mEq/L (7-15); Carbon Dioxide* 28 mmol/L (20-32); Creatinine* 0.5 mg/dL (0.5-1.5); Est. Creatinine Clearance* 39.39; Estimated Glomerular Filt Rate 95 ml/min
[2023-01-18 06:59] LABS: Blood Urea Nitrogen* 24 mg/dL (7-30); Calcium* 9.3 mg/dL (8.4-10.6); Glucose* 95 mg/dL (60-115); Magnesium* 2.2 mg/dL (1.5-2.6)
[2023-01-18 09:00] VITALS: BP 134/82; PULSE 98; RESP 16; TEMP 36.6; O2SAT 95
[2023-01-18] MEDS: POTASSIUM BICARB 25 MEQ EFFERVESCENT TAB PO ×2 (09:00→19:06)
[2023-01-18] MEDS: LEVOTHYROXINE 75 MCG TABLET PO (09:00)
[2023-01-18] MEDS: FLUOXETINE HCL 20 MG CAPSULE PO (09:00)
[2023-01-18] MEDS: ACETAMINOPHEN 325 MG TABLET 975 MG PO ×2 (10:04→15:41)
[2023-01-18 10:57] VITALS: O2SAT 96
--- NOTE | 2023-01-18 11:21 | PC.NURSE ---
Patient had stool on back of gown and on brief. Offered shower. Patient refused initially. Journeyman Electrician stated that if we do not get the skin clean, there will be skin breakdown. Patient agreeable to shower. Due to the splint on the left arm, modified shower was completed. Shampoo cap was done to rinse the hair. Patient was able to brush own hair, brush own teeth. Needed some assistance with lotion and deodorant application. Also needed some assistance with washing periarea and that was very brown on washcloth. No signs of skin breakdown noted. Journeyman Electrician was made aware after the fact that patient had childhood PTSD and has a fear of showers.
--- NOTE | 2023-01-18 11:40 | PM.IMPN1 ---
Progress Note: A&P Assessment and plan (1) Closed left humeral fracture: Problem details: - Ortho consult, recommended continued splint and sling, outpatient clinic f/u 1-2 weeks - continue pain management with scheduled Tylenol, lidocaine patch, cool compress/ice as needed - PT consult, no acute needs identified - OT consult, recommended ongoing acute therapy Status: Acute (2) COVID: Problem details: - clinically stable at this time, asymptomatic and stable on RA - empiric Paxlovid (01/12) Status: Acute (3) Weakness: Problem details: - likely secondary to COVID - PT/OT/SW following; plan to discharge patient to Memory Care apartment after 10 day COVID quarantine Status: Acute (4) Acute alteration in mental status: Problem details: - worsening of cognitive impairment in setting of COVID infection - PT/OT/social sciences research scientist Status: Acute (5) Dementia: Problem details: - MMSE 15/30 10/2022 -correlates to moderate dementia - plan to d/c to Memory Care on 01/22 Status: Acute (6) Hypokalemia: Problem details: - noted on 01/17, replace and follow Status: Acute Plan - per above - Lovenox for ppx Subjective Date Seen: 01/18/23 Interval history: No acute events overnight. Cherry was admitted to the hospital on 01/11 for a fall at home and subsequent left humeral fracture, non operative. She was incidentally COVID positive. She has been working with therapies and has been accepted at a Memory Care facility on 01/22 upon discharge. Exam Narrative: Exam Narrative: GEN: Alert and sitting up in bed HEENT: EOMIs bilaterally, no scleral icterus CV: RRR, No concerning murmurs, rubs, or gallops R: LCTA bilaterally without concerning wheezing, air movement adequate Ab: Soft and nontender Ext: wwp, wearing sling on LUE, normal ROM and geological drafter strength of L hand and fingers Skin: No concerning skin lesions or rashes on exposed skin Neuro: Nonfocal Psych: Cognitive impairment evident, baseline Const: Vital Signs, click to edit/add: Vital Signs - 24 hr 01/17/23 15:00 01/17/23 15:00 01/17/23 18:00 Temperature 97.2 F L Pulse Rate [Right Pulse Oximeter] 100 100 Respiratory Rate 16 16 Blood Pressure [Ri ght Arm] 115/78 Pulse Oximetry 96 96 Oxygen Delivery Me thod Room Air Room Air 01/17/23 23:00 01/18/23 09:00 01/18/23 10:57 Temperature 97.9 F Pulse Rate [Right Pulse Oximeter] 98 Respiratory Rate 16 16 Blood Pressure [Ri t Arm] 134/82 Pulse Oximetry 95 96 Oxygen Delivery Me thod Room Air Room Air Room Air Labs Labs: Laboratory Results - last 24 hr 01/18/23 06:22 Sodium 139 Potassium 3.6 Chloride 104 Carbon Dioxide 28 Anion Gap 7 BUN 24 Creatinine 0.5 Estimated Creat Clear 39.39 Estimated GFR 95 Glucose 95 Calcium 9.3 Magnesium 2.2
[2023-01-18] MEDS: LIDOCAINE 5% PATCH 1 PATCH TRANSDERMA (11:47)
--- NOTE | 2023-01-18 13:52 | PC.NURSE ---
End of shift report: Patient was up independently in room. No PIV in place. Potassium 3.6 today. Taking supplemental potassium. Vital signs within normal limits. Remains on RA. Denies pain. Lidocaine patch applie to anterior and posterior left shoulder where fracture is. Sling in place. Skin inspection completed and no signs of breakdown. Patient did have stool on gown. Was able to shower lower half in the shower with assistance. Hair washed with shampoo cap. Linen changed. Takes pills whole with water. Appetite is poor but did eat some of breakfast and half of lunch. Sipping on an ensure now. Lung sounds diminished. Denies nausea. Passing flatus. Passing urine without difficulty. Cooperative and pleasant today. Daughter and daughters childhood friend were here visiting with patient. She appeared happy when they were here. Encouraged patient to ambulate around room and sit in chair for all meals. This was completed. Plan is to DC to [facility] on 01/22.
[2023-01-18 15:00] VITALS: PULSE 97; RESP 16; O2SAT 97
[2023-01-18] MEDS: MIRTAZAPINE 15 MG TABLET PO (19:07)
[2023-01-18] MEDS: MELATONIN 3 MG TABLET 6 MG PO (19:07)
[2023-01-18] MEDS: ENOXAPARIN 40 MG/0.4 ML INJ SUBCUT (19:08)
[2023-01-18] MEDS: DONEPEZIL 10 MG TABLET PO (19:08)
[2023-01-19 00:30] VITALS: RESP 16
[2023-01-19 07:00] VITALS: O2SAT 94
[2023-01-19 07:03] LABS: Potassium* 3.8 mmol/L (3.6-5.1)
[2023-01-19 07:30] VITALS: PULSE 89; RESP 16
--- NOTE | 2023-01-19 07:44 | PM.IMPN1 ---
Progress Note: A&P Assessment and plan (1) COVID: Problem details: - clinically stable at this time, asymptomatic and stable on RA - empiric Paxlovid (01/12) Status: Acute (2) Dementia: Problem details: - MMSE 10/2022 -correlates to moderate dementia - plan to d/c to Memory Care on 01/22 Status: Acute (3) Hypokalemia: Problem details: - noted on 01/17, replace and follow Status: Acute (4) Closed left humeral fracture: Problem details: - Ortho consult, recommended continued splint and sling, outpatient clinic f/u 1-2 weeks - continue pain management with scheduled Tylenol, lidocaine patch, cool compress/ice as needed - PT consult, no acute needs identified - OT consult, recommended ongoing acute therapy Status: Acute (5) Weakness: Problem details: - likely secondary to COVID - PT/OT/SW following; plan to discharge patient to Memory Care apartment after 10 day COVID quarantine Status: Acute Subjective Date Seen: 01/19/23 Interval history: Daily Progress Note - Hospital Medicine #: 9 CC: COVID positive, dementia, awaiting placement OVERNIGHT UPDATES FROM STAFF & MED, LAB, IMAGING UPDATES continues to rest comfortably without agitation. RN: shift unremarkable. Potassium is 3.8 Objective: confused but not agitated or depressed. Vitals: see above Lungs: Clear. Cardiac: S1S2. Disposition/Potential discharge - Likely to return to previous living situation. Exam Const: Vital Signs, click to edit/add: Vital Signs - 24 hr 01/18/23 09:00 01/18/23 10:57 01/18/23 15:00 Temperature 97.9 F Pulse Rate [Right Pulse Oximeter] 98 97 Respiratory Rate 16 16 Blood Pressure [Ri ght Arm] 134/82 Pulse Oximetry 95 96 Oxygen Delivery Me thod Room Air Room Air 01/18/23 15:00 01/19/23 00:30 01/19/23 00:30 Temperature Pulse Rate [Right Pulse Oximeter] Respiratory Rate 16 16 16 Blood Pressure [Ri ght Arm] Pulse Oximetry 97 Oxygen Delivery Me thod Room Air Room Air Labs Labs: Laboratory Results - last 24 hr 01/19/23 06:00 Potassium 3.8
--- NOTE | 2023-01-19 07:55 | PC.NURSE ---
END OF SHIFT NOTE: UNEVENTFUL NIGHT. PT SLEPT WELL. DENIES CP, SOB, N/V. AMBULATES INDEPENDENTLY WITHIN ROOM. ON RA. CALL LIGHT WITHIN PT?S REACH. PT TO DC TO [facility] 01/22.
[2023-01-19 09:00] VITALS: BP 126/78; PULSE 89; RESP 16; TEMP 36.4; O2SAT 94
[2023-01-19] MEDS: FLUOXETINE HCL 20 MG CAPSULE PO (09:31)
[2023-01-19] MEDS: POTASSIUM BICARB 25 MEQ EFFERVESCENT TAB PO ×2 (09:31→17:57)
[2023-01-19] MEDS: LEVOTHYROXINE 75 MCG TABLET PO (09:31)
[2023-01-19] MEDS: ACETAMINOPHEN 325 MG TABLET 975 MG PO ×2 (11:10→15:44)
[2023-01-19] MEDS: LIDOCAINE 5% PATCH 1 PATCH TRANSDERMA (13:15)
--- NOTE | 2023-01-19 15:23 | PC.SOCIAL ---
Discharge Planning: Contacted daughterJennifer [phone] due to primary contact daughterEmely's voicemail ([phone]) being full. Jennifer states that she will contact her sister and hopes to be able to be at the hospital with her sister on 01/22/2023 to inform their mother of plan. Jennifer would like to make this transfer at 10am, but will confirm with hospital after she talks to her sister. Social work to follow up as needed.
[2023-01-19 18:50] VITALS: BP 125/83; PULSE 90; RESP 18; TEMP 36.3; O2SAT 95
[2023-01-19] MEDS: MIRTAZAPINE 15 MG TABLET PO (19:50)
[2023-01-19] MEDS: MELATONIN 3 MG TABLET 6 MG PO (19:51)
[2023-01-19] MEDS: ENOXAPARIN 40 MG/0.4 ML INJ SUBCUT (19:51)
[2023-01-19] MEDS: DONEPEZIL 10 MG TABLET PO (19:51)
--- NOTE | 2023-01-19 22:30 | PC.NURSE ---
Shift [id number]- Patient with arm in sling and brace. She uses affected extremity (for example, holding items). She does not complain of pain. She is up in room ad tammi. She is offered help with PM cares, but states she did them independently.
[2023-01-19 23:00] VITALS: RESP 18; O2SAT 95
[2023-01-20] MEDS: ACETAMINOPHEN 325 MG TABLET 975 MG PO ×3 (02:17→17:58)
--- NOTE | 2023-01-20 04:54 | PC.NURSE ---
[id number]: Patient with hx dementia pleasant and cooperative with cares. Appeared to rest well during noc. Independent in room. L. arm in soft cast and sling.
[2023-01-20] MEDS: LEVOTHYROXINE 75 MCG TABLET PO (06:58)
[2023-01-20 07:45] VITALS: O2SAT 98
[2023-01-20 08:32] VITALS: BP 118/83; PULSE 88; RESP 18; TEMP 36.6; O2SAT 94
[2023-01-20] MEDS: FLUOXETINE HCL 20 MG CAPSULE PO (08:44)
[2023-01-20] MEDS: POTASSIUM BICARB 25 MEQ EFFERVESCENT TAB PO ×2 (08:44→17:57)
[2023-01-20] MEDS: LIDOCAINE 5% PATCH 1 PATCH TRANSDERMA (14:26)
[2023-01-20 15:00] VITALS: RESP 16; O2SAT 98
--- NOTE | 2023-01-20 15:29 | PM.IMPN1 ---
Progress Note: A&P Assessment and plan (1) COVID: Problem details: - clinically stable at this time, asymptomatic and stable on RA - empiric Paxlovid (01/12) Status: Acute (2) Weakness: Problem details: - likely secondary to COVID - PT/OT/SW following; plan to discharge patient to Memory Care apartment after 10 day COVID quarantine Status: Acute (3) Dementia: Problem details: - MMSE 10/2022 -correlates to moderate dementia - plan to d/c to Memory Care on 01/22 Status: Acute (4) Hypokalemia: Status: Resolved (5) Closed left humeral fracture: Problem details: - Ortho consult, recommended continued splint and sling, outpatient clinic f/u 1-2 weeks - continue pain management with scheduled Tylenol, lidocaine patch, cool compress/ice as needed - PT consult, no acute needs identified - OT consult, recommended ongoing acute therapy Status: Acute Plan Planning d/c to [facility] Sunday. Subjective Time Seen by Provider: 13:34 Date Seen: 01/20/23 Interval history: Cherry was wondering around the room because she said she had lost her phone. She did not want me to examine her because she was too busy looking for her phone. Eventually she found it and then let me examine her. Exam Narrative: Exam Narrative: General: No acute distress. Awake, alert, oriented to self. The left arm is in a sling. Oropharynx: Clear. Mucous membranes moist. Cardiovascular: Regular rate and rhythm. No murmurs, gallops, or rubs. Respiratory: Clear to auscultation bilaterally. No wheezes or crackles. Extremities: No pedal edema. Const: Vital Signs, click to edit/add: Vital Signs - 24 hr 01/19/23 15:45 01/19/23 18:50 01/19/23 23:00 Temperature 97.3 F L Pulse Rate [Right Pulse Oximeter] 90 Respiratory Rate 18 18 Blood Pressure [Ri ght Arm] 125/83 Pulse Oximetry 95 95 Oxygen Delivery Me thod Room Air Room Air Room Air 01/20/23 07:45 01/20/23 08:32 Temperature 97.9 F Pulse Rate [Right Pulse Oximeter] 88 Respiratory Rate 18 Blood Pressure [Ri ght Arm] 118/83 Pulse Oximetry 98 94 Oxygen Delivery Me thod Room Air Room Air
[2023-01-20] MEDS: ENOXAPARIN 40 MG/0.4 ML INJ SUBCUT (19:44)
[2023-01-20] MEDS: MIRTAZAPINE 15 MG TABLET PO (19:45)
[2023-01-20] MEDS: MELATONIN 3 MG TABLET 6 MG PO (19:45)
[2023-01-20] MEDS: DONEPEZIL 10 MG TABLET PO (19:45)
--- NOTE | 2023-01-20 19:45 | PC.NURSE ---
shift note: pt up indept in room. lt u/e in splint. Lt hand with intact cap refill and pulse. fingers on lt u/e warm with no swelling. LS clr. sats >92%. Pt denies cough and sob. Pt needed encouragement and assistance with meals. Pt refused cares this a.m. Pt had small BM in toilet.
[2023-01-20 19:50] VITALS: BP 130/92; PULSE 102; RESP 16; TEMP 36.7; O2SAT 91
[2023-01-20 23:00] VITALS: RESP 16; O2SAT 90
[2023-01-21 07:00] VITALS: O2SAT 94
--- NOTE | 2023-01-21 07:32 | PC.NURSE ---
SHIFT NOTE : Pt forgetful but very pleasant, pt requested that she not be woken overnight, I just want to sleep. Entertainer & Comic explained that she did have to wake pt x1 to remove lidocaine patch. Removed patch and pt went back to bed. Pt denied pain, left arm in sling. Pt up independent and tolerated well. VSS on RA. Denies SOB,CP, and N/V.
[2023-01-21] MEDS: POTASSIUM BICARB 25 MEQ EFFERVESCENT TAB PO ×2 (08:38→18:03)
[2023-01-21] MEDS: FLUOXETINE HCL 20 MG CAPSULE PO (08:39)
[2023-01-21] MEDS: LEVOTHYROXINE 75 MCG TABLET PO (08:39)
[2023-01-21 08:40] VITALS: BP 120/80; PULSE 80; RESP 18; TEMP 36.6; O2SAT 94
[2023-01-21] MEDS: ACETAMINOPHEN 325 MG TABLET 975 MG PO ×2 (11:18→18:04)
[2023-01-21 15:00] VITALS: PULSE 80; RESP 16; O2SAT 95
--- NOTE | 2023-01-21 15:04 | PM.IMPN1 ---
Progress Note: A&P Assessment and plan (1) COVID: Problem details: - clinically stable at this time, asymptomatic and stable on RA - empiric Paxlovid (01/12) Status: Acute (2) Weakness: Problem details: - likely secondary to COVID - PT/OT/SW following; plan to discharge patient to Memory Care apartment after 10 day COVID quarantine Status: Acute (3) Dementia: Problem details: - MMSE 15/30 10/2022 -correlates to moderate dementia - plan to d/c to Memory Care on 01/22 Status: Acute (4) Closed left humeral fracture: Problem details: - Ortho consult, recommended continued splint and sling, outpatient clinic f/u 1-2 weeks - continue pain management with scheduled Tylenol, lidocaine patch, cool compress/ice as needed - PT consult, no acute needs identified - OT consult, recommended ongoing acute therapy Status: Acute Plan Planning d/c to [facility] tomorrow. Subjective Time Seen by Provider: 10:54 Date Seen: 01/21/23 Interval history: Cherry had no complaints. She was a little depressed about going to [facility] instead of home tomorrow. Her daughter, Emely, was at bedside and questions were answered. Emely told her mom that she would need to go to [facility] to be safe in light of recent COVID and left humeral fracture. Exam Narrative: Exam Narrative: General: No acute distress. Awake, alert, oriented to self. The left arm is in a sling. Oropharynx: Clear. Mucous membranes moist. Cardiovascular: Regular rate and rhythm. No murmurs, gallops, or rubs. Respiratory: Clear to auscultation bilaterally. No wheezes or crackles. Extremities: No pedal edema. Const: Vital Signs, click to edit/add: Vital Signs - 24 hr 01/20/23 19:50 01/20/23 23:00 01/20/23 23:00 Temperature 98.1 F Pulse Rate [Right Pulse Oximeter] 102 H Respiratory Rate 16 16 16 Blood Pressure [Ri ght Arm] 130/92 H Pulse Oximetry 91 90 Oxygen Delivery Me thod Room Air Room Air 01/21/23 07:00 01/21/23 08:40 Temperature 97.8 F Pulse Rate [Right Pulse Oximeter] 80 Respiratory Rate 18 Blood Pressure [Ri ght Arm] 120/80 Pulse Oximetry 94 94 Oxygen Delivery Me thod Room Air Room Air
[2023-01-21] MEDS: LIDOCAINE 5% PATCH 1 PATCH TRANSDERMA (18:04)
[2023-01-21] MEDS: MELATONIN 3 MG TABLET 6 MG PO (20:45)
[2023-01-21] MEDS: ENOXAPARIN 40 MG/0.4 ML INJ SUBCUT (20:45)
[2023-01-21] MEDS: MIRTAZAPINE 15 MG TABLET PO (20:45)
[2023-01-21] MEDS: DONEPEZIL 10 MG TABLET PO (20:45)
[2023-01-21 20:49] VITALS: BP 127/90; PULSE 96; RESP 16; TEMP 36.4; O2SAT 95
[2023-01-21 23:00] VITALS: RESP 16; O2SAT 93
--- NOTE | 2023-01-22 05:37 | PC.NURSE ---
SHIFT NOTE : Pt pleasant, forgetful. VSS on RA. Uneventful shift, pt requested melatonin at HS for sleep, requested not to be woken. Appears to have slept well. Left arm in sling, denies pain. denies SOB, CP, and N/V. Up independent in room. Plan is for pt to d/c to the [facility] today.
[2023-01-22] MEDS: ACETAMINOPHEN 325 MG TABLET 975 MG PO (06:47)
[2023-01-22] MEDS: LEVOTHYROXINE 75 MCG TABLET PO (06:47)
[2023-01-22 07:00] VITALS: PULSE 100; RESP 16; O2SAT 93
[2023-01-22 08:42] VITALS: BP 125/81; PULSE 100; RESP 16; TEMP 36.6
[2023-01-22] MEDS: POTASSIUM BICARB 25 MEQ EFFERVESCENT TAB PO (08:45)
[2023-01-22] MEDS: FLUOXETINE HCL 20 MG CAPSULE PO (08:46)
--- NOTE | 2023-01-22 09:44 | P.DS_ITS ---
DS: Providers Provider Time Seen by Provider: 08:55 Date Seen: 01/22/23 Date of admission: 01/16/23 09:21 Primary care physician: Janet Huffman MD Admitting Clinician: Vibha Hernandez MD Consults: 01/11/23 19:46 Consult to Physical Therapy [CONS] Routine Comment: Reason(s) for PT Consult:: Recent Falls Any Restrictions?:: UE Immobilized Consult to Appeals Representative [CONS] Routine Comment: Reason for Consult:: Discharge Planning Needs 01/11/23 19:48 Consult to Occupational Therapy [CONS] Routine Comment: Reason(s) for OT Consult:: Evaluate and Treat Any Restrictions?:: UE Immobilized 01/11/23 20:11 Consult to Physician [CONS] Routine Comment: Consulting Provider: Nilda Boston Has provider been notified: Yes Attending Physician on discharge: Sujey Reyes MD Date of Discharge: 01/22/23 DS: Diagnosis Discharge Diagnosis (1) Hypokalemia: Status: Resolved (2) Closed left humeral fracture: Status: Acute Problem details: - Ortho consult, recommended continued splint and sling, outpatient clinic f/u 1-2 weeks - continue pain management with scheduled Tylenol, lidocaine patch, cool compress/ice as needed - PT consult, no acute needs identified - OT consult, recommended ongoing acute therapy (3) Weakness: Status: Acute Problem details: - likely secondary to COVID - PT/OT/SW following; plan to discharge patient to Memory Care apartment after 10 day COVID quarantine (4) COVID: Status: Acute Problem details: - clinically stable at this time, asymptomatic and stable on RA - empiric Paxlovid (01/12) (5) Acute alteration in mental status: Status: Resolved Problem details: - worsening of cognitive impairment in setting of COVID infection - 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 (6) Dementia: Status: Chronic Problem details: - MMSE 1530 10/2022 -correlates to moderate dementia - plan to d/c to Memory Care on 01/22 (7) Dyslipidemia: Status: Chronic Problem details: Mild, Not on medications (8) Vitamin D deficiency: Status: Chronic Problem details: On supplementation (9) Mild cognitive impairment: Status: Chronic Problem details: MMSE [id number], MMSE 2019, 2021 (10) Anxiety: Status: Chronic (11) Depression: Status: Chronic Problem details: On fluoxetine (12) Osteopenia: Status: Chronic Problem details: Exercises takes calcium (13) Hypothyroidism: Status: Chronic DS: Summary Hospital Course Hospital Course: This is a 77-year-old female baseline mild cognitive impairment who was found down at home and brought to the emergency department. CT head and C-spine were unremarkable and there were no acute findings and chest x-ray. She had a left midshaft humerus fracture that was new. She was also positive for COVID without hypoxia. She was admitted for fall and weakness and placed on COVID precautions. MMSE done 10/2022 was 15/30. Orthopedic Service saw her in consultation on 01/12/2023 for humerus fracture and recommended outpatient follow- up. In discussion with the patient's family, memory care was sought and patient has had an unremarkable hospital course. She is discharged to [facility] today in stable condition. Please see diagnoses above for more details. Time Spent with Patient Time attestation: Total time spent providing and/or coordinating discharge services: Exam Narrative: Exam Narrative: General: No acute distress. Awake, alert, oriented to self. The left arm is in a sling. Oropharynx: Clear. Mucous membranes moist. Cardiovascular: Regular rate and rhythm. No murmurs, gallops, or rubs. Respiratory: Clear to auscultation bilaterally. No wheezes or crackles. Extremities: No pedal edema. Const: Vital Signs, click to edit/add: Vital Signs - 24 hr 01/21/23 15:00 01/21/23 15:00 01/21/23 20:49 Temperature 97.5 F L Pulse Rate [Right Pulse Oximeter] 80 96 Respiratory Rate 16 16 16 Blood Pressure [Ri t Arm] 127/90 H Pulse Oximetry 95 95 Oxygen Delivery Me thod Room Air Room Air 01/21/23 23:00 01/22/23 08:42 Temperature 97.9 F Pulse Rate [Right Pulse Oximeter] 100 Respiratory Rate 16 16 Blood Pressure [Ri ght Arm] 125/81 Pulse Oximetry 93 Oxygen Delivery Me thod Room Air DS: Data Data Completed and Pending Completed studies during hospitalization: 01/11/2023 EKG: Sinus rhythm with premature atrial complexes, heart rate 96 beats per minute, otherwise normal EKG. Ordering Physician: Tony Fisher D.O. Date of Service: 01/11/23 Procedure(s): CT cervical spine wo con Accession Number(s): [id number] cc: Tony Fisher D.O.; Janet Huffman M.D.~ For Patients: As a result of the Cures Act, medical imaging exams and procedure reports are released immediately into your electronic medical record. You may view this report before your referring provider. If you have questions, please contact your health care provider. INDICATION: Trauma. TECHNIQUE: CT cervical spine without contrast. COMPARISON: None. FINDINGS: Vertebrae: Alignment is normal. There are no fractures or suspicious bony lesions. Discs and facet joints: There are diffuse degenerative changes in the disc spaces and facet joints. Extraspinal findings: Paraspinous soft tissues are unremarkable. IMPRESSION: 1. No sign of acute injury. 2. Multilevel degenerative spondylosis. Please note that all CT scans at this facility use dose modulation, iterative reconstruction, and/or weight-based dosing when appropriate to reduce radiation dose to as low as reasonably achievable. Dictated by Kevin Valencia MD @ 01/11/2023 5:01:46 PM (Electronically Signed) Ordering Physician: Tony Fisher D.O. Date of Service: 01/11/23 Procedure(s): XR humerus LT Accession Number(s): [id number] cc: Tony Fisher D.O.; Janet Huffman M.D.~ For Patients: As a result of the Cures Act, medical imaging exams and procedure reports are released immediately into your electronic medical record. You may view this report before your referring provider. If you have questions, please contact your health care provider. Indication: Trauma. Technique: Left humerus, 2 views. Comparison: None. Findings/Impression: Bones: Acute mildly displaced horizontal humeral diaphyseal fracture. Joint spaces: Unremarkable. Soft tissues: Unremarkable. Dictated by Kevin Valencia MD @ 01/11/2023 5:14:01 PM (Electronically Signed) Ordering Physician: Tony Fisher D.O. Date of Service: 01/11/23 Procedure(s): XR chest 1V Accession Number(s): [id number] cc: Tony Fisher D.O.; Janet Huffman M.D.~ For Patients: As a result of the Cures Act, medical imaging exams and procedure reports are released immediately into your electronic medical record. You may view this report before your referring provider. If you have questions, please contact your health care provider. INDICATION: Chest pain. TECHNIQUE: Chest 1 views. COMPARISON: None. FINDINGS: Cardiovascular and mediastinum: Heart size and vasculature are normal in caliber and appearance. Lungs and pleural spaces: Lungs are clear. No sign of infiltrate or mass. No sign of pleural effusion. No pneumothorax. Bones and soft tissues: No significant findings. IMPRESSION: No acute or significant findings. Dictated by Kevin Valencia MD @ 01/11/2023 5:13:00 PM (Electronically Signed) Ordering Physician: Tony Fisher D.O. Date of Service: 01/11/23 Procedure(s): CT head/brain wo con Accession Number(s): [id number] cc: Tony Fisher D.O.; Janet Huffman M.D.~ For Patients: As a result of the Cures Act, medical imaging exams and procedure reports are released immediately into your electronic medical record. You may view this report before your referring provider. If you have questions, please contact your health care provider. INDICATION: Fall, altered mental status. TECHNIQUE: CT head without contrast. COMPARISON: July 12, 2019. FINDINGS: CSF spaces: Mild diffuse parenchymal volume loss. Brain parenchyma and extra-axial spaces: Mild chronic white matter ischemic disease. The lorenzo-white differentiation is normal. No sign of mass, hemorrhage, or midline shift. No extra-axial fluid collection. Skull base and calvarium: The visualized paranasal sinuses and mastoid air cells demonstrate no acute or significant findings. The visualized orbits are grossly unremarkable. No skull fractures. IMPRESSION: No acute intracranial abnormality on this noncontrast study. Please note that all CT scans at this facility use dose modulation, iterative reconstruction, and/or weight-based dosing when appropriate to reduce radiation dose to as low as reasonably achievable. Dictated by Kevin Valencia MD @ 01/11/2023 4:59:59 PM (Electronically Signed) Discharge Plan Discharge Disposition: [facility] Date of Admission: 01/16/23 09:21 Attending Provider on Discharge: Sujey Reyes Consulting Providers: Nilda Boston Primary Care Provider: Janet Huffman Condition: Stable Discharge Medications: New melatonin 3 mg Tablet 6 mg PO HS PRNQty: 60 0RF lidocaine [Lidoderm] 5 % Adhesive Patch,Medicated 1 patch transdermal Q24H Qty: 10 0RF Effer-K 25 mEq Tablet, Effervescent 25 meq PO BIDWM Qty: 60 0RF Continued levothyroxine 75 mcg tablet 75 mcg PO DAILY Qty: 90 4RF fluoxetine 20 mg capsule 20 mg PO QDAY Qty: 90 4RF cholecalciferol (vitamin D3) 50 mcg (2,000 unit) tablet 50 mcg PO QDAY Qty: 90 4RF fluticasone propionate [Flonase Allergy Relief] 50 mcg/actuation spray,suspension 2 spray intranasal QDAY Qty: 10 0RF Rx Instructions: administer into each nostril 2 sprays once a day donepezil 10 mg tablet 10 mg PO HS mirtazapine 15 mg tablet 15 mg PO HS Discharge Orders: Discharge Order (Routine); Ordered 01/22/23 Ordered By: Sujey Reyes Additional Instructions: Appointment with Ortho this week or early next for follow-up left humerus fracture. Activity Level: Activity as Tolerated Activity Detail: Do not use left arm, keep in sling until seen by ortho Discharge Diet: Regular Follow Up Appointments: Janet Huffman MD [Primary Care Provider] - Admit to: Memory care Discharge Potential: Poor Length of Stay: >90 days Can use facility standing orders?: Yes Code Status: Full Code TEDs: N/A Rehab Potential: Poor Therapy: Physical Therapy and Occupational Therapy Therapy Orders: Evaluate and Treat Oxygen: No Urinary Catheter: No Lab Orders: potassium level Orders are good >30 days: No Signature: Sujey Reyes MD
--- NOTE | 2023-01-22 09:58 | PC.SOCIAL ---
Discharge plans: Called KATHY Burroughs at [facility], who confirmed they are expecting pt to arrive this morning. RN to fax discharge orders when completed to [facility] at [phone]. Spoke with odilia Han, who will be arriving at the hospital this morning to transport pt to [facility]. shore worker to follow up as needed.
--- NOTE | 2023-01-22 11:27 | PC.NURSE ---
VSS, RA. Denies pain. Regular diet- tolerating. Up using bathroom independently, some stress incontinence- brief on. Last BM- 01/20, denies nausea, abdomen soft. LUE in sling, skin intact. Discharged at 1115 accompanied by daughter and all belongings. [id number] report given to RN @ [facility]. Klarissa Nolasco RN
== END 2023-01-22 11:15 | DRG 137 ==
LOC: ED 17:46 → MEDSURG 18:14
PROVIDERS: Physician Assistant; Admitting Provider Family Medicine; Emergency Provider Student in an Organized Health Care Education/Training Program; PCP Family Medicine; Visit Provider Family Medicine
DX: U07.1 COVID-19 (principal); F32.A Depression, unspecified; E03.9 Hypothyroidism, unspecified; F43.10 Post-traumatic stress disorder, unspecified; R53.1 Weakness; F03.B0 Unspecified dementia, moderate, without behavioral disturbance, psychotic disturbance, mood disturbance, and anxiety; R41.82 Altered mental status, unspecified; S42.322A Displaced transverse fracture of shaft of humerus, left arm, initial encounter for closed fracture; W18.30XA Fall on same level, unspecified, initial encounter; Y92.030 Kitchen in apartment as the place of occurrence of the external cause; E87.6 Hypokalemia
CPT/HCPCS: 29105; 36415; 70450; 71045; 72125; 73060; 80048; 80053; 81001; 82550; 83735; 84132; 84484; 85025; 87631; 93005; 97110; 97161; 97165; 97535; 99283; 99285; A9270; G0378; J1650; J2270

== ENCOUNTER 2023-07-13 16:18 | Emergency (ER) | payer BC, SELFPAY ==
[2023-07-13 16:29] VITALS: BP 196/94; PULSE 98; RESP 16; TEMP 36.9; O2SAT 95; BMI 27.4
--- NOTE | 2023-07-13 16:34 | XR_ITS ---
Patient: SUSU MOYER Facility:?[facility] Patient ID:?[id number] Site Patient ID:?[id number]. Site :?[id number] Study:?XRay-Extremity 2V HUMERUS-07/13/2023 4:57:46 PM Ordering Physician:?DR. LUU Final Report: Indication: PREVIOUS FRACTURE, HARD LUMP Technique: Left humerus two views Comparison: Left humerus radiographs June 01, 2023 Findings/IMPRESSION: Significant interval increased callus formation bridging across a minimally displaced left mid humeral fracture; with decreasing size of the associated central rounded lucency measuring up to 15 millimeters, previously 20 millimeters. No new fracture, dislocation or suspicious bony lesion. Partially visualized shoulder and elbow joints are preserved. Soft tissues are stable. Dictated by Vasile Warner MD @ 07/13/2023 5:26:32 PM Signed by:?Vasile Warner MD @07/13/2023 5:26:32 PM (Electronic Signature)
--- NOTE | 2023-07-13 18:51 | ED.NURSE ---
pt left arm bandaged with gauze and tape by tech.
--- NOTE | 2023-07-13 20:20 | ED.GENADULT ---
HPI - General Adult General Date Seen: 07/13/23 Chief complaint: Extremity Pain/Injury, Upper Stated complaint: L arm previous fracture-Hard lump now Time Seen by Provider: 07/13/23 16:29 Source: family Mode of arrival: ambulatory Limitations: other History of Present Illness HPI narrative: Patient is an 78-year-old with significant dementia, brought in by her daughter for evaluation of swelling and redness on her left arm. Of note, she had a fracture of the midshaft humerus back in January. This has healed without surgery, she was seen at the end of May and had very good callus formation and a stable looking fracture site at that time. Her daughter says that she had OT today and then right after OT noted this swelling and redness. Her daughter acknowledges that she has not seen the arm for a couple of days, it is possible that there was something milder going on in that her mother due to her dementia did not mention it. There is no reported fevers or other illness. Patient actually does not say that she has pain in that arm unless it is touched. No recent falls. Related Data Previous Rx's Medication Instructions Recorded cholecalciferol (vitamin D3) 50 50 mcg PO QDAY #90 tabs 11/02/22 mcg (2,000 unit) tablet fluoxetine 20 mg capsule 20 mg PO QDAY #90 caps 11/02/22 fluticasone propionate 50 2 spray intranasal QDAY #10 mL 11/02/22 mcg/actuation nasal spray,suspension (Flonase Allergy Relief) levothyroxine 75 mcg tablet 75 mcg PO DAILY #90 tabs 11/02/22 lidocaine 5 % topical patch 1 patch transdermal Q24H #10 ea 01/22/23 (Lidoderm) melatonin 3 mg tablet 6 mg (2 x 3 mg) PO HS PRN #60 tabs 01/22/23 potassium bicarbonate-citric acid 25 meq PO BIDWM #60 ea 01/22/23 25 mEq effervescent tablet (Effer-K) donepezil 10 mg tablet 10 mg PO QPM #90 tabs 04/27/23 mirtazapine 15 mg tablet 15 mg PO QPM #90 tabs 04/27/23 Allergies Allergy/AdvReac Type Severity Reaction Status Date / Time Penicillins Allergy Unknown Rash Verified 07/13/23 16:33 Sulfa (Sulfonamide Allergy Unknown Rash Verified 07/13/23 16:33 Antibiotics) Review of Systems Status of ROS: Reports: 6 or more systems reviewed and unremarkable except as noted in History and below PFSH PFS Medical History Health care directive on file ?Z78.9 - Other specified health status (ICD-10) Insomnia ?G47.00 - Insomnia, unspecified (ICD-10) Chronic rhinitis ?J31.0 - Chronic rhinitis (ICD-10) Neuropathy ?G62.9 - Polyneuropathy, unspecified (ICD-10) Dyslipidemia (~2018) ?E78.5 - Hyperlipidemia, unspecified (ICD-10) Vitamin D deficiency ?E55.9 - Vitamin D deficiency, unspecified (ICD-10) Posttraumatic stress disorder ?F43.10 - Post-traumatic stress disorder, unspecified (ICD-10) Osteopenia (~2018) ?M85.80 - Other specified disorders of bone density and structure, unspecified site (ICD-10) Mild cognitive impairment ?G31.84 - Mild cognitive impairment, so stated (ICD-10) Hypothyroidism ?E03.9 - Hypothyroidism, unspecified (ICD-10) Fibromyalgia ?M79.7 - Fibromyalgia (ICD-10) Depression ?F32.A - Depression, unspecified (ICD-10) Anxiety ?F41.9 - Anxiety disorder, unspecified (ICD-10) Syncope and collapse ?R55 - Syncope and collapse (ICD-10) Surgical History Status post tubal ligation (1968) ?Z98.51 - Tubal ligation status (ICD-10) History of varicose vein stripping (1968) ?Z98.890 - Other specified postprocedural states (ICD-10) History of colonoscopy (11/01/18) ?Z98.890 - Other specified postprocedural states (ICD-10) Family History Father Alcohol dependence Maternal Grandmother Breast cancer Mother Fibromyalgia Social History Narrative: Lives independently in [address]. She currently receives [employer] on wheels, no other services. 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 Full Code Exercises: walking, swimming -swims 60 minutes daily, walks 30 minutes daily non smoker rarely consumes alcohol What is your current living situation?: I presently have a place to live Problems where you live: no known problems Problems where you live details: N/A In the past 12 months, utilities in danger of being shut off: no In past 12 months, lack of transportation kept you from medical appts, meetings, work, or getting things needed for daily living: no In the past 12 mos, have been you worried that your food would run out before you had money to buy more?: never true In the past 12 mos, the food you bought just didn't last and you didn't have money to buy more?: never true Highest level of school completed/degree received: Bachelor's degree Smoking Status: Never smoker Do you use any of these nicotine containing products: None Second hand tobacco smoke exposure: No How often do you have a drink containing alcohol: never How often do you have six or more drinks on one occasion: Never AUDIT-C Alcohol total score: 0 Non-prescribed substance use: denies use Caffeine: Yes How often does anyone, including family, friends and others, physically hurt you: never How often does anyone, including family, friends and others, insult or talk down to you: never How often does anyone, including family, friends and others, threaten you with harm: never How often does anyone, including family, friends and others, scream or curse at you: never Little interest or pleasure in doing things: not at all Feeling down, depressed, or hopeless: not at all service: No Exam Narrative: Exam Narrative: Vital signs reviewed, afebrile, hypertensive. In general, an alert, well-appearing elderly woman. She is pleasant and cooperative. Extremities: Examination of the left arm shows swelling and erythema as well as tenderness over the mid he humerus, at about 1/3 down the proximal humerus. The remainder of the arm is normal, specifically there is no erythema or edema, distal CMS is normal, pulses intact. Skin: Warm and dry, otherwise normal. Const: Vital Signs, click to edit/add: Vital Signs - 24 hr 07/13/23 16:29 Temperature 98.5 F Pulse Rate [Right Pulse Oximeter] 98 Respiratory Rate 16 Blood Pressure [Ri ght Upper Arm] 196/94 H Pulse Oximetry 95 Oxygen Delivery Me thod Room Air Documenting provider has reviewed patient's vital signs: yes Course Course ED Course: I did an x-ray of the left humerus, this shows vigorous callus production, I did not see any evidence of new fracture. Read as follows by Radiology:Findings/IMPRESSION: Significant interval increased callus formation bridging across a minimally displaced left mid humeral fracture; with decreasing size of the associated central rounded lucency measuring up to 15 millimeters, previously 20 millimeters. No new fracture, dislocation or suspicious bony lesion. Partially visualized shoulder and elbow joints are preserved. Soft tissues are stable. I looked with the ultrasound this area, she does have a small fluid collection noted deep in the soft tissues. I recommended needle aspiration of this area to determine whether this was hematoma or abscess. They agreed to proceed. Procedure note: The area in question was evaluated with ultrasound to identify the fluid collection. Skin overlying was anesthetized with lidocaine with epinephrine an 18 gauge needle was passed into the fluid collection with bloody purulent material aspirated. This was sent for culture. I did recommend I and D at this time, and so used a 15. Blade to make a 1 cm incision in the skin overlying, soft tissues were with a straight mosquito and the abscess was incised with a small amount of purulent drainage out. Bandage was applied, bleeding controlled. I did talk with Tony from Orthopedics, he knows this patient well as he has been following her since last January. At this time, he agrees with plan to send her out on antibiotics with orthopedic follow-up. She does not have any hardware, she is not immune suppressed, at this time I do not have any reason to suspect osteomyelitis or extension of this infection into the bone, but if she is not improving, may need MRI for further evaluation. Reviewed with her daughter at any time if she is significantly worsening, fevers shaking chills, weakness vomiting etcetera the arm is looking significantly more swollen or red, return to the emergency department. Doxycycline prescribed from [facility]. Vital Signs Vital signs: Initial Vital Signs Temperature 98.5 F 07/13/23 16:29 Temperature Source Temporal Artery Scan 07/13/23 16:29 Pulse Rate 98 07/13/23 16:29 Pulse Rhythm Regular 07/13/23 16:29 Pulse Strength 3+ Normal 07/13/23 16:29 Respiratory Rate 16 07/13/23 16:29 Blood Pressure 196/94 H 07/13/23 16:29 Blood Pressure Mean 128 H 07/13/23 16:29 Blood Pressure Position Sitting 07/13/23 16:29 Pulse Oximetry 95 07/13/23 16:29 Oxygen Delivery Method Room Air 07/13/23 16:29 Vital Signs Temperature 98.5 F 07/13/23 16:29 Pulse Rate 98 07/13/23 16:29 Respiratory Rate 16 07/13/23 16:29 Blood Pressure 196/94 H 07/13/23 16:29 Pulse Oximetry 95 07/13/23 16:29 Oxygen Delivery Method Room Air 07/13/23 16:29 Temperature 98.5 F 07/13/23 16:29 Pulse Rate 98 07/13/23 16:29 Respiratory Rate 16 07/13/23 16:29 Blood Pressure 196/94 H 07/13/23 16:29 Pulse Oximetry 95 07/13/23 16:29 Oxygen Delivery Method Room Air 07/13/23 16:29 Discharge Plan Discharge Clinical Impression: Abscess of arm, left Patient Disposition: Home, Self-Care Condition: Stable Instructions: Abscess Incision and Drainage (DC) Additional Instructions: Antibiotic as prescribed. Please call on Sunday to make a follow up appointment with Mookie (LILLIE Jimenez). If worsening in the interim, such as fevers, significant worsening swelling/pain, etc. return to the ER. Prescriptions: No Action levothyroxine 75 mcg tablet 75 mcg PO DAILY Qty: 90 4RF fluoxetine 20 mg capsule 20 mg PO QDAY Qty: 90 4RF cholecalciferol (vitamin D3) 50 mcg (2,000 unit) tablet 50 mcg PO QDAY Qty: 90 4RF fluticasone propionate [Flonase Allergy Relief] 50 mcg/actuation spray,suspension 2 spray intranasal QDAY Qty: 10 0RF Rx Instructions: administer into each nostril 2 sprays once a day melatonin 3 mg Tablet 6 mg PO HS PRNQty: 60 0RF lidocaine [Lidoderm] 5 % Adhesive Patch,Medicated 1 patch transdermal Q24H Qty: 10 0RF Effer-K 25 mEq Tablet, Effervescent 25 meq PO BIDWM Qty: 60 0RF donepezil 10 mg tablet 10 mg PO QPM Qty: 90 0RF mirtazapine 15 mg tablet 15 mg PO QPM Qty: 90 0RF Follow Up/Referrals: Kristen Bal MD [Primary Care Provider] - Stand Alone Forms: [employer] Info Instructions
== END 2023-07-13 18:53 | disposition home or self-care (01) ==
PROVIDERS: Emergency Provider Emergency Medicine; PCP Family Medicine
DX: L02.414 Cutaneous abscess of left upper limb (principal)
CPT/HCPCS: 10060; 73060; 87070; 87186; 99283; 99284

== ENCOUNTER 2023-07-20 10:12 | Outpatient (CLI) | payer BC, SELFPAY ==
--- NOTE | 2023-07-20 10:45 | MR_ITS ---
Patient: SUSU MOYER Facility:?[facility] Patient ID:?[id number] Site Patient ID:?[id number]. Site :?[id number] Study:?MRI-Extremity Left 15 CC DOTAREM HUMERUS-07/20/2023 2:17:19 PM Ordering Physician:MARLA POLLACK Final Report: EXAM: MRI OF THE LEFT HUMERUS, WITHOUT AND WITH IV CONTRAST CLINICAL INDICATION: Cutaneous abscess. COMPARISON PLAIN FILMS: 07/13/2023. Multiple prior examinations. COMPARISON CROSS-SECTIONAL IMAGING STUDIES: None. TECHNICAL: Axial, sagittal and coronal T1 and STIR images. Contrast: Dotarem, 15 mL. FINDINGS: There is an incompletely united fracture in the proximal to mid humeral diaphysis. There is soft tissue thickening in the epicenter the humeral diaphysis. The soft tissue extends through the anterolateral and posteromedial cortex of the humeral diaphysis through the adjacent musculature and into the subcutaneous tissues along the superficial margin of the distal deltoid. The soft tissue thickening measures up to 6 cm in oblique length. The soft tissue thickening measures 1.5 cm in width. Small amount of adjacent fluid. Adjacent edema and enhancement in the musculature and deep soft tissues. There is cutaneous edema and thickening in the anterolateral aspect of the humeral diaphyseal region. Findings are consistent with chronic osteomyelitis. There is a 0.9 cm sequestrum of necrotic bone in the central aspect of the region of osteomyelitis. There is a prominent amount of bridging callus formation adjacent to the chronic fracture. No effusion or synovitis in the shoulder joint to suggest septic arthritis. No left axillary lymphadenopathy. IMPRESSION: 1. 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 There is cortical destruction and extension of the infection into the adjacent musculature and subcutaneous tissues. There is a necrotic sequestrum within the central aspect of the humeral diaphysis. 2. Remainder unremarkable. Dictated by Terrell Chamorro MD @ 07/20/2023 2:50:15 PM Signed by:?Terrell Chamorro MD @07/20/2023 2:50:15 PM (Electronic Signature)
== END 2023-07-20 10:13 | disposition home or self-care (01) ==
LOC: MRI 10:14
PROVIDERS: PCP Family Medicine; Visit Provider Physician Assistant Surgical
DX: L02.414 Cutaneous abscess of left upper limb (principal); S42.202A Unspecified fracture of upper end of left humerus, initial encounter for closed fracture; S42.302A Unspecified fracture of shaft of humerus, left arm, initial encounter for closed fracture
CPT/HCPCS: 73220; A9575